=== PATIENT | female | born 1945 | race Caucasian/White ===

== ENCOUNTER 2023-08-14 11:42 | Emergency (ER) | payer MEDICARE, OTHER, SELFPAY ==
[2023-08-14 11:55] VITALS: BP 109/66; PULSE 70; RESP 18; TEMP 37.2; O2SAT 97
--- NOTE | 2023-08-14 12:25 | ED.FEMALEGU ---
HPI - Female Genitourinary General Chief complaint: Urogenital-Female Stated complaint: Cold symptoms Source: patient Mode of arrival: ambulatory Limitations: no limitations History of Present Illness HPI Narrative: 77-year-old female presents to [facility] with complaints of chills and urinary frequency since yesterday. Patient reports history of urinary tract infections. Patient denies dysuria, urgency, vaginal discharge, fever, nausea vomiting or diarrhea. Patient denies sick contacts. Patient denies recent travel. MD elicited complaint: other (Urinary frequency) Onset (ago): day(s) (1) Vaginal discharge: none Vaginal bleeding: none Urinary symptoms: Frequency Associated symptoms: chills Related Data Home Medications Medication Instructions Recorded Confirmed celecoxib 200 mg capsule mg 08/14/23 Allergies Allergy/AdvReac Type Severity Reaction Status Date / Time codeine AdvReac Nausea Verified 08/14/23 12:01 Review of Systems Constitutional: Constitutional: Reports chills and Denies fatigue ENT: Denies dizziness and Denies nasal congestion Respiratory: Respiratory: Denies cough, Denies dyspnea and Denies wheezing Gastrointestinal: Gastrointestinal: Denies diarrhea, Denies nausea and Denies vomiting Genitourinary: Genitourinary: Denies abnormal vaginal bleeding, Denies hematuria, Reports nocturia, Denies dysuria, Denies pelvic pain and Denies flank pain Integumentary/Breasts: Skin/Breast: Denies pruritus, Denies erythema and Denies rash Neurologic: Denies dizziness, Denies syncope and Denies headache(s) PMFSH Comments At time of signature, I agree with nursing past medical, surgical, social and family history. There is no relevant family history pertinent to the presenting complaint. Exam Const: General: healthy appearing and no acute distress Nutritional Appearance: well nourished Orientation/consciousness: patient oriented x3 Limitations: no limitations HENMT: Head: normal to inspection Eyes: Conjunctivae: conjunctivae normal Neck: Neck: normal visual inspection Resp: Effort & Inspection: normal respiratory effort and not labored Auscultation: clear to auscultation bilaterally, no crackles, no rales, no rhonchi and no wheezes Cardio: Rate: regular rate Rhythm: regular rhythm Heart sounds: no murmurs : General: Yes bladder normal to palpation and Yes CVA tenderness (Mild) bilateral Back/Spine/Pelvis: Back: CVA tenderness (Mild bilateral CVA tenderness noted upon palpation) Skin: General skin exam: normal color Rashes: no rashes Neuro: General: patient oriented x3 Speech: normal speech Gait exam (Neuro): Normal gait present Extrem: General: normal to inspection Psych: Appearance: grossly normal Affect: normal affect Attitude: cooperative Course Course Level of Care: Express Care Visit Vital Signs Vital signs: Vital Signs Temperature 37.2 C 08/14/23 11:55 Pulse Rate 70 08/14/23 11:55 Respiratory Rate 18 08/14/23 11:55 Blood Pressure 109/66 08/14/23 11:55 Pulse Oximetry 97 08/14/23 11:55 Oxygen Delivery Room Air 08/14/23 11:55 Temperature 37.2 C 08/14/23 11:55 Pulse Rate 70 08/14/23 11:55 Respiratory Rate 18 08/14/23 11:55 Blood Pressure 109/66 08/14/23 11:55 Pulse Oximetry 97 08/14/23 11:55 Oxygen Delivery Room Air 08/14/23 11:55 MDM - Female Genitourinary MDM Narrative Medical decision making narrative: Urinalysis results discussed with patient. Urine culture obtained and sent to lab. Patient agrees take antibiotic as prescribed. Will place patient on ciprofloxacin due to bilateral CVA tenderness. Patient understands importance of monitoring symptoms very closely and agrees to proceed to the emergency room if symptoms worsen Differential Diagnosis Differential diagnosis: Likely cervicitis, cystitis and other (Viral illness) Lab Data Labs: Urine Glucose Negative
== END 2023-08-14 12:38 | disposition home or self-care (01) ==
PROVIDERS: Emergency Provider Nurse Practitioner Family
DX: N30.00 Acute cystitis without hematuria (principal); B96.20 Unspecified Escherichia coli [E. coli] as the cause of diseases classified elsewhere
CPT/HCPCS: 81003; 87077; 87086; 87088; 87186; 99203; G0463

== ENCOUNTER 2024-09-12 11:27 | Emergency (ER) | payer MEDICARE, OTHER, SELFPAY ==
--- NOTE | ~2024-09-12 | XR_ITS ---
HISTORY: RT foot pain/swelling top of foot no injury 4x days COMPARISON: none TECHNIQUE: 3 views of the right foot were performed FINDINGS: No acute fracture or dislocation is appreciated. No significant degenerative disease is noted. The base of the fifth metatarsal is intact. No calcaneal spur is noted. Trace dorsal soft tissue swelling is present. IMPRESSION: Trace dorsal soft tissue swelling, without acute fracture. Reviewed, dictated and finalized at location A.
--- OUTSIDE RECORDS SUMMARY | 2024-09-12 11:31 | XMS_ITS | Encounter Summary ---
Author Organization [facility] Health Address [address] [place] [address] Care Team Providers Care Electrical Electronics Technician Name Role Phone Nikos Arango MD Unavailable [phone] Baudilio Shipley MD Primary Care Provider [phone] Encounter Details Date Type Department Care Team (Late st Contact Info) Description 03/18/2023 Lab Requisition [facility] - DermPath Lab [address] [facility] [place] [address] Irish Gray DO [address] [facility] [address] [place] [address] Social History Tobacco Use Types Packs/Day Years Used Date Smoking Tobacco: Never Smokeless Tobacco: Never Alcohol Use Standard Drinks/Week Comments Yes 8 (1 standard drink = 0.6 oz pur e alcohol) 8-10 glasses per week OASIS D0700: Social Isolation Answer Da te Recorded Frequency of experiencing loneliness or isolatio n Never 02/26/2023 OASIS A1250: Transportation Answer Date Recorded Lack of Transportation (Medical) No 02/26/2023 Lack of Transportation (Non-Medical) No 02/26/2023 Patient Unable or Declines to Respond No 02/26/2023 OASIS B1300: Health Literacy Answer Rosales e Recorded Frequency of needing help to read materials from doctor or pharmacy Never 02/26/2023 Overall Financial Resource Strain (CARDIA) Answe r Date Recorded How hard is it for you to pa y for the very basics like food, housing, medical care, and heating? Not hard at all 02/10/2023 PHQ-2 Answer Date Recorded Patient Health Questionnaire-2 Score 0 03/16/2023 [facility] - Occupational Stress Questionnaire Answer Date Recorded Do you feel stress - tense, restless, nervous, or anxious, or unable to sleep at night because your mind is troubled all the time - these days? Not at all 02/10/2023 Hunger Vital Sign Answer Date Recorded Within the past 12 months, y ou worried that your food would run out before you got the money to buy more. Never true 02/11/20 23 Within the past 12 months, t he food you bought just didn't last and you didn't have money to get more. Never true 02/10/2023 PRAPARE - Transportation Answer Date Re corded In the past 12 months, has l ack of transportation kept you from medical appointments or from getting medications? No 08/2022 In the past 12 months, has l ack of transportation kept you from meetings, work, or from getting things needed for daily living? No 02/10/2023 Housing Stability Vital Sign Answer Rosales e Recorded In the last 12 months, was t here a time when you were not able to pay the mortgage or rent on time? No 02/10/2023 In the last 12 months, how many places have you lived? 1 02/10/2023 In the last 12 months, was t here a time when you did not have a steady place to sleep or slept in a half-way (including now)? No 02/10/2023 Comments Unknown Sex and Gender Information Value Date Recorded Sex Assigned at Not on file Legal Sex Female 12:16 PM CDT Gender Identity Not on file Sexual Orientation Not on file COVID-19 Exposure Response Date Recorded In the last 10 days, have yo u been in contact with someone who was confirmed or suspected to have Coronavirus/COVID-19? No / Unsure 02/26/2023 8:51 AM LOSS PREVENTION ANALYST documented as of this encounter Functional Status * Is person deaf or have serious hearing difficulty? Answer Date of Assessment Author No 12/24/2016 12:28 PM Brandy Chirinos RN * Is person blind or have serious difficulty seeing? Answer Date of Assessment Author No 12/24/2016 12:28 PM Brandy Chirinos RN * Does person have serious difficulty walking/climbing stairs? Answer Date of Assessment Author No 12/24/2016 12:28 PM Brandy Chirinos RN * Does person have difficulty dressing/bathing? Answer Date of Assessment Author No 12/24/2016 12:28 PM Brandy Chirinos RN * Does person have difficulty doing errands alone? Answer Date of Assessment Author No 12/24/2016 12:28 PM Brandy Chirinos RN documented as of this encounter Mental Status * Does person have difficulty concentrating/remembering/making decisions? Answer Entry Date Author No 12/24/2016 12:28 PM Brandy Chirinos RN documented in this encounter Plan of Treatment Not on file documented as of this encounter Procedures Procedure Name Priority Date/Time Associated Diagnosis Comments DERMATOPATHOLOGY Routine 03/18/2023 9:29 AM LOSS PREVENTION ANALYST documented in this encounter Results * DERMATOPATHOLOGY (03/18/2023 9:29 AM LOSS PREVENTION ANALYST) Case Report Dermatopathology Report Case: [id number] Authorizing Provider: Irish Gray DO Collected: 03/18/2023 09:29 AM Ordering Location: [facility] DermPath Lab Received: 03/19/2023 07:17 AM Pathologist: Brook Langston MD Specimen: Skin, left posterior LE 11:32 AM LOSS PREVENTION ANALYST DERMATOPATHOLOGY LABORATORY Final Diagnosis Specimen A. 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 The specimen consists of a shave biopsy measuring 10x7x1 mm. Jar 0. 11:32 AM [facility] DERMATOPATHOLOGY LABORATORY Microscopic Description Specimen A. SKIN, left posterior LE: The epidermis shows parakeratosis, full thickness disorderly maturation of keratinocytes, mitoses at different levels, and dyskeratotic cells. 4 11:32 AM [facility] DERMATOPATHOLOGY LABORATORY Disclaimer An external and internal positive and negative controls are appropriate for the histochemical, immunohistochemical and immunofluorescence stain(s) in this case (if any), except where stated explicitly. The performance characteristics of the stain(s) cited in this report were developed and its performance characteristic determined by the Dermatopathology Laboratory at [facility], directed by Dr. Lucian Guthrie. These tests need not be, and therefore are not, approved by the [place] Food and Drug Administration. The tests are used for clinical purposes. Billing Codes Specimen Charges Stain Charges 02589 1 4 11:32 AM [facility] DERMATOPATHOLOGY LABORATORY Embedded Images 4 11:32 AM [facility] DERMATOPATHOLOGY LABORATORY Pathology/Cytolo gy TISSUE SPECIMEN FROM SKIN / Unknown 03/18/2023 9:29 AM LOSS PREVENTION ANALYST 03/19/2023 7:17 AM [facility] us Irish Gray DO LAB - PATHOLOGY/CYTOLOGY ORDERABLES Final Result DERMATOPATHOLOGY LABORATORY [facility] - Department of Dermatology [facility] Specialized Medicine [address] [place] [address], [address] [place], [place] [id number] [place] [address] documented in this encounter Visit Diagnoses Not on filedocumented in this encounter Care Teams Electrical Electronics Technician Relationship Specialty [place] [address] [place] [address] PCP - General Internal Medicine 11/24/21 [place] [address] [place] [address] Orthopedic Surgery 12/31/14 documented as of this encounter
--- OUTSIDE RECORDS SUMMARY | 2024-09-12 11:31 | XMS_ITS | Data Portability ---
Author Organization Amy. Reyes Mai n Office Address [address] [place] [id number] Care Team Providers Care Video News Editor Name Role Phone GERMAINE ROGEL [employer] Contract Analyst Assessment No assessment recorded. Plan of Treatment Reminders Order Date Submit Date Provider Last Modified By Organization Details Last Modified Time Details Appointments None recorded. Lab TSH, serum or plasma 2018 019 [facility], [address] [place], [address], 9 08:35:34 CBC w/ auto diff 2018 019 [facility], [address] [place], [address], 9 08:35:32 vitamin D, 25-hydroxy, total, serum 2018 019 [facility], [address] [place], [address], 9 08:35:34 C-reactive protein, quantitativ e, serum or plasma 2018 019 [facility], [address] [place], [address], 9 08:35:33 CMP, serum or plasma 2018 019 [facility], [address] [place], [address], 9 08:35:33 lipid panel, blood 2018 019 [facility], [address] [facility], [place], [address], 9 08:35:34 HbA1c (hemoglobin A1c), blood 2018 019 [facility], [address] [facility], [place], [address], 9 08:35:35 Referral None recorded. Procedures None recorded. Surgeries None recorded. Imaging electrocard iogram 2018 019 Main Office, [address] [place] [address], [address], [address], 9 13:27:03 audiogram 2018 019 [email or web address] Main Office, [address] [place] [address], [address], 9 13:27:03 electrocard iogram 2018 019 [place] Main Office, [address] [place] [address], [address], [address], 0 05:01:23 Medication Orders None recorded. Patient TargetsNo targets recorded. Patient Instructions Encounter Date Encounter Id Patient Instructions Last Modified By Organization Details Last Modified Time 11/10/2018 spirometry testing* rkundra Not available 11/10/2018 14:59:57 Patient reminded blood was drawn today. Encouraged to hydrate and be cautious as they may become dizzy or light headed. If issues or symptoms, return to clinic or contact nearest medical personnel. We look forward to seeing you to discuss the results of these labs. Be well and see you soon! Not available 11/10/2018 10:35:44 11/17/2018 barron anxiety inventory* rkundra Not available 11/17/2018 16:18:41 epworth sleepiness scale* rkundra Not available 11/17/2018 16:18:41 functional assessment screening* rkundra Not available 11/17/2018 16:18:41 spirometry testing* rkundra Not available 11/17/2018 16:18:41 In compliance with Medicare guidelines, we will be billing Medicare to inform them of your adherence to completing your necessary preventive care. Not available 11/17/2018 11:16:36 Reason for Referral None Reported. Results Created Date Observation Date Name Description Value Unit Range Abnormal Flag Note LastModifiedBy Organization Detail LastModifiedTime 11/18/1911/17/2018 audio gram Hearing Aids? No Not Available Main O ffice [address], [address], 11/17/2018 11:17:28 11/18/1911/17/2018 audio gram 500 Hz- Right- 20 dB normal Not Available [facility] [address], [address], 11/17/2018 11:17:28 11/18/1911/17/2018 audio gram 500 Hz- Left- 20 dB normal Not Available Main Office [address], [address], 11/17/2018 11:17:28 11/18/1911/17/2018 audio gram 1000 Hz- Right- 20 dB normal Not Available [facility] [address], [address], 11/17/2018 11:17:28 11/18/1911/17/2018 audio gram 1000 Hz- Left- 20 dB normal Not Available Main Office [address], [address], 11/17/2018 11:17:28 11/18/1911/17/2018 audio gram 2000 Hz- Right- 20 dB normal Not Available [facility] [address], [address], 11/17/2018 11:17:28 11/18/1911/17/2018 audio gram 2000 Hz- Left- 20 dB normal Not Available Main Office [address], [address], 11/17/2018 11:17:28 11/18/1911/17/2018 audio gram 4000 Hz- Right- 20 dB abnorm al Not Available Main Office [address], [address], 11/17/2018 11:17:28 11/18/1911/17/2018 audio gram 4000 Hz- Left- 20 dB normal Not Available Main Office [address], [address], 11/17/2018 11:17:28 11/18/1911/17/2018 elect rocar diogr am Rate & Rhythm Sinus Not Available Main O ffice [address], [address], 11/17/2018 11:17:24 11/18/1911/17/2018 elect rocar diogr am QRS 90 Not Available Main Offic e [address], [address], 11/17/2018 11:17:24 11/18/1911/17/2018 elect rocar diogr am PA Interval 173 Not Available Main O ffice [address], [address], 11/17/2018 11:17:24 11/18/1911/17/2018 elect rocar diogr am QRS Duration 81 Not Available Main Office [address], [address], 11/17/2018 11:17:24 11/18/1911/17/2018 elect rocar diogr am QT Interval 434 Not Available Main O ffice [address], [address], 11/17/2018 11:17:24 11/18/192019 dion metry testi ng* Spirometry abnorm al Not Available Main Office [address], [address], 11/17/2018 11:17:22 11/18/19 19 11/17/2018 funct ional asses sment scree jorge* Gender Female Not Available Main Offic e [address] [place] [address], [address], 11/17/2018 11:16:39 11/18/19 19 11/17/2018 funct ional asses sment scree jorge* Results Discus sed Not Available Main Office [address] [place] [address], [address], 11/17/2018 11:16:39 11/18/19 19 11/17/2018 epwor th sleep iness scale * Total Score 5 Not Available Main O ffice [address] [place] [address], [address], 11/17/2018 11:16:38 11/18/19 19 11/17/2018 epwor th sleep iness scale * Indication Normal Not Available Main Of fice [address] [place] [address], [place], [address], 11/17/2018 11:16:38 11/18/1911/17/2018 barron anxie ty inven tory* Total Score 0 Not Available Main O ffice [address] [place] [address], [address], 11/17/2018 11:16:38 11/18/1911/17/2018 barron anxie ty inven tory* Indication Normal Not Available Main Of fice [address] [place] [address], [address], 11/17/2018 11:16:38 11/11/19 19 11/10/2018 CBC w/ auto diff white blood cells 5.4 k/cu_ mm 3.6-10 .2 normal Not Available [facility] (Lab) [address], [place], [address], 11/11/2018 08:35:32 11/11/19 19 11/10/2018 CBC w/ auto diff red blood cells 4.4 m/cu_ mm 4.1-5. 3 normal Not Available [facility] (Lab) [address], [place], [address], 11/11/2018 08:35:32 11/11/19 19 11/10/2018 CBC w/ auto diff hemoglobin 14.0 gm/dL 11.9-1 5.8 normal Not Available [facility] (Lab) [address], [place], [address], 11/11/2018 08:35:32 11/11/1911/10/2018 CBC w/ auto diff hematocrit 44.0 perce nt 37.4-4 8.3 normal Not Available [facility] (Lab) [address], [place], [address], 11/11/2018 08:35:32 11/11/1911/10/2018 CBC w/ auto diff MCV 99 fL 82-99 normal Not Available [facility] (Lab) [address], [place], [address], 11/11/2018 08:35:32 11/11/1911/10/2018 CBC w/ auto diff MCH 32 pg 27-33 normal Not Available [facility] (Lab) [address], [place], [address], 11/11/2018 08:35:32 11/11/1911/10/2018 CBC w/ auto diff MCHC 32 perce nt 32-36 normal Not Available [facility] (Lab) [address] [place], [address], 11/11/2018 08:35:32 11/11/1911/10/2018 CBC w/ auto diff platelets 257 k/cu_ mm 150-45 0 normal Not Available [facility] (Lab) [address] [place], [address], 11/11/2018 08:35:32 11/11/19 19 11/10/2018 CBC w/ auto diff MPV 10.5 fL 9.8-12 .7 normal Not Available [facility] (Lab) [address] [place], [address], 11/11/2018 08:35:32 11/11/19 19 11/10/2018 CBC w/ auto diff RDW-CV 14 perce nt 11-15 normal Not Available [facility] (Lab) [address] [facility], [place], [address], 11/11/2018 08:35:32 11/11/19 19 11/10/2018 CBC w/ auto diff neutrophils 65 perce nt 37-72 normal Not Available [facility] (Lab) [address] [place], [address], 11/11/2018 08:35:32 11/11/19 19 11/10/2018 CBC w/ auto diff lymphocytes 22 perce nt 16-48 normal Not Available [facility] (Lab) [address] [place], [address], 11/11/2018 08:35:32 11/11/1911/10/2018 CBC w/ auto diff monocytes 11 perce nt 4-14 normal Not Available [facility] (Lab) [address] [place], [address], 11/11/2018 08:35:32 11/11/1911/10/2018 CBC w/ auto diff eosinophils 1 perce nt 0-9 normal Not Available [facility] (Lab) [address] [place], [address], 11/11/2018 08:35:32 11/11/19 19 11/10/2018 CBC w/ auto diff basophils 1 perce nt 0-2 normal Not Available [facility] (Lab) [address] [place], [address], 11/11/2018 08:35:32 11/11/1911/10/2018 CBC w/ auto diff nucleated RBC 0.00 /100_ WBC 0.00-0 .00 normal Not Available [facility] (Lab) [address], [place], [address], 11/11/2018 08:35:32 11/11/1911/10/2018 CBC w/ auto diff neutrophil count 3.6 k/cu_ mm 1.1-6. 0 normal Not Available [facility] (Lab) [address], [place], [address], 11/11/2018 08:35:32 11/11/1911/10/2018 CBC w/ auto diff lymphocyte count 1.2 k/cu_ mm 0.7-3. 4 normal Not Available [facility] (Lab) [address], [place], [address], 11/11/2018 08:35:32 11/11/1911/10/2018 CBC w/ auto diff monocyte count 0.6 k/cu_ mm 0.3-1. 0 normal Not Available [facility] (Lab) [address], [place], [address], 11/11/2018 08:35:32 11/11/1911/10/2018 CBC w/ auto diff eosinophil count 0.0 k/cu_ mm 0.0-0. 6 normal Not Available [facility] (Lab) [address] [place], [address], 11/11/2018 08:35:32 11/11/1911/10/2018 CBC w/ auto diff basophil count 0.1 k/cu_ mm 0.0-0. 1 normal Not Available [facility] (Lab) [address] [place], [address], 11/11/2018 08:35:32 11/11/1911/10/2018 CBC w/ auto diff nucleated RBC count 0.0 x10'3 /uL 0.0-0. 0 normal Not Available [facility] (Lab) [address] [facility], [place], [address], 11/11/2018 08:35:32 11/11/1911/10/2018 CBC w/ auto diff automated percent immature granulocytes 0 % Not Available [facility] (Lab) [address] [place], [address], 11/11/2018 08:35:32 11/11/1911/10/2018 CBC w/ auto diff automated absolute immature granulocytes 0.0 x10'3 /uL Not Available [facility] (Lab) [address] [facility], [place], [address], 11/11/2018 08:35:32 11/11/1911/10/2018 C-derick ctive prote in, quant itati ve, serum or plasm a C-reactive protein 1.39 mg/L 0.00-1 0.00 normal Not Available [facility] (Lab) [address] [facility], [place], [address], 11/11/2018 08:35:33 11/11/1911/10/2018 CMP, serum or plasm a glucose 95 mg/dL 70-99 normal Not Available [facility] (Lab) [address] [facility], [place], [address], 11/11/2018 08:35:33 11/11/1911/10/2018 CMP, serum or plasm a urea nitrogen 23 mg/dL 8-23 normal Not Available [facility] (Lab) [address] [place], [address], 11/11/2018 08:35:33 11/11/1911/10/2018 CMP, serum or plasm a creatinine 0.8 mg/dL 0.5-1. 2 normal Not Available [facility] (Lab) [address] [place], [address], 11/11/2018 08:35:33 11/11/19 19 11/10/2018 CMP, serum or plasm a GFR() 91 mL/mi n/1.7 3_m2 60-300 normal Not Available [facility] (Lab) [address] [place], [address], 11/11/2018 08:35:33 11/11/19 19 11/10/2018 CMP, serum or plasm a GFR(others) 75 mL/mi n/1.7 3_m2 60-300 normal Not Available [facility] (Lab) [address] [place], [address], 11/11/2018 08:35:33 11/11/19 19 11/10/2018 CMP, serum or plasm a sodium 141 mEq/L 136-14 5 normal Not Available [facility] (Lab) [address] [place], [address], 11/11/2018 08:35:33 11/11/19 19 11/10/2018 CMP, serum or plasm a potassium 4.5 mEq/L 3.5-5. 3 normal Not Available [facility] (Lab) [address] [place], [address], 11/11/2018 08:35:33 11/11/1911/10/2018 CMP, serum or plasm a chloride 103 mEq/L 98-107 normal Not Available [facility] (Lab) [address] [place], [address], 11/11/2018 08:35:33 11/11/1911/10/2018 CMP, serum or plasm a CO2 25 mEq/L 23-31 normal Not Available [facility] (Lab) [address] [place], [address], 11/11/2018 08:35:33 11/11/1911/10/2018 CMP, serum or plasm a anion gap 13 mmole s/L 8-16 normal Not Available [facility] (Lab) [address] [place], [address], 11/11/2018 08:35:33 11/11/1911/10/2018 CMP, serum or plasm a calcium 9.6 mg/dL 8.8-10 .5 normal Not Available [facility] (Lab) [address] [place], [address], 11/11/2018 08:35:33 11/11/1911/10/2018 CMP, serum or plasm a total protein 6.9 gm/dL 6.0-8. 3 normal Not Available [facility] (Lab) [address] [place], [address], 11/11/2018 08:35:33 11/11/1911/10/2018 CMP, serum or plasm a albumin 4.5 gm/dL 3.5-5. 0 normal Not Available [facility] (Lab) [address] [place], [address], 11/11/2018 08:35:33 11/11/1911/10/2018 CMP, serum or plasm a AST (SGOT) 24 IU/L 11-32 normal Not Available [facility] (Lab) [address] [place], [address], 11/11/2018 08:35:33 11/11/1911/10/2018 CMP, serum or plasm a ALT (SGPT) 17 IU/L 9-43 normal Not Available [facility] (Lab) [address] [place], [address], 11/11/2018 08:35:33 11/11/1911/10/2018 CMP, serum or plasm a alkaline phos 65 IU/L 35-129 normal Not Available [facility] (Lab) [address] [place], [address], 11/11/2018 08:35:33 11/11/1911/10/2018 CMP, serum or plasm a total bilirubin 0.9 mg/dL 0.0-1. 0 normal Not Available [facility] (Lab) [address] [place], [address], 11/11/2018 08:35:33 11/11/1911/10/2018 lipid panel , blood total cholesterol 207 mg/dL 0-199 high Not Available [facility] (Lab) [address] [place], [address], 11/11/2018 08:35:34 11/11/1911/10/2018 lipid panel , blood triglyceride s 48 mg/dL 0-149 normal Not Available [facility] (Lab) [address] [place], [address], 11/11/2018 08:35:34 11/11/1911/10/2018 lipid panel , blood HDL cholesterol 94 mg/dL 50-240 normal Not Available [facility] (Lab) [address] [place], [address], 11/11/2018 08:35:34 11/11/1911/10/2018 lipid panel , blood LDL cholesterol 103 mg/dL 0-99 high Not Available [facility] (Lab) [address] [facility], [place], [address], 11/11/2018 08:35:34 11/11/1911/10/2018 lipid panel , blood chol/HDL ratio 2.2 Not Available [facility] (Lab) [address] [place], [address], 11/11/2018 08:35:34 11/11/1911/10/2018 lipid panel , blood non-HDL cholesterol 113 mg/dL 0-129 normal For Ages >=20 years (mg/d L) ..... ..... ..... ..Hola al... .Elev ated. ...Mello rderl ine.. ....H igh.. ...Ve ry High Chol* ..... ...<2 00... ..... ..... ..... ..... ..... ..... ..... .200- 239.. ..>=2 40 Trig. ..... ..... <1 50... ..... ..... ..... ...15 0-199 ..... .200- 499.. ..>=5 00 LDL-C ..... ..<10 0...1 00-12 9.... .130- 159.. ....1 60-18 9.... >=190 NonHD L-C.< 130.. .130- 159.. ...16 0-189 ..... .190- 219.. ..>=2 20 Tahir castellano TA, et al. Natio nal Lipid Assoc iatio n recom menda tions for patie nt-ce ntere d manag ement of dysli pidem ia: part 1-ful l repor t. J Clin Lipid ol 2015; 129-1 69. *Thir d repor t of the Natio nal Gladis stero l Educa tion Progr am (NCEP ) Exper t Panel on Detec tion, Educa tion, and Treat ment of High Blood Gladis stero l in Adult s (Adul t Treat ment panel III): final repor t. Circu ashish n 2001; 106:3 143. Not Available [facility] (Lab) [address] [place], [address], 11/11/2018 08:35:34 11/11/19 19 11/10/2018 TSH, serum or plasm a TSH 1.67 mciu/ mL 0.30-5 .00 normal Not Available [facility] (Lab) [address] [place], [address], 11/11/2018 08:35:34 11/11/1911/10/2018 vitam in D, 25-hy droxy , total , serum vitamin D, 25-hydroxy 45.4 NG/mL 30.0-8 0.0 normal This assay was perfo rmed using [employer] ratio n reage nts and test kits. Value s obtai vik with other assay metho ds or kits canno t be used inter hughes eably . NOTE: Defic iency : <20 ng/mL Insuf ficie ncy: 20-29 ng/mL Optim um Level : 30-80 ng/mL Possi ble Toxic ity: >80 ng/mL Most patie nts with toxic ity have level s >150 ng/mL Not Available [facility] (Lab) [address] [facility], [place], [address], 11/11/2018 08:35:34 11/11/19 19 11/10/2018 HbA1c (hemo globi n A1c), blood hemoglobin A1C 5.2 perce nt 0.0-5. 6 normal <5.7% Debbie l 5.7 - 6.4% Incre ased risk for diabe elis >=6.5 % Diagn ostic of diabe elis <7.0% Goal of thera py >8.0% Actio n sugge sted Not Available [facility] (Lab) [address] [facility], [place], [address], 11/11/2018 08:35:35 11/11/19 19 elect tre nickerson am No observ ation record ed. rkundra Not Available 2018 15:52:56 11/11/19 19 dion metry testi ng* No observ ation record ed. rkundra Main Office [address] [address], [place], [address], 11/17/2018 15:52:56 Result Notes None recorded. Problems Name Problem SNOMED Code Status Onset Date Resolution Date Notes Provider Name and Address Organization Details Recorded Time History of malignan t neoplasm of breast 069915822 Completed 199211/17/2018 Removal Reason: right intraduct al s/p bilateral mastectom y LUCRECIA Solorio Amy. 9 15:01:39 Osteoart hritis 975738422 Active 1999 LUCRECIA Solorio Amy. 9 15:51:18 Insomnia 174223000 Active 1999 LUCRECIA Solorio Amy. 9 16:01:25 Basal cell carcinom a of skin 980479783 Active LUCRECIA Solorio Amy. 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 9 16:14:38 Urge incontin ence of urine 79774489 Active 2018 in physical therapy LUCRECIA Solorio Amy. 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 Procedures Surgical History Date Name Laterality Status Provider Name and Address Organization Details Recorded Time 11/18/19 19 [facility] completed Amy. Selene 019 11:16:37 09/15/19 17 Dxa bone density katrin vrt fx completed Amy. Ravi 05/04/2019 08:52:35 05/07/19 12 Diagnostic colonoscopy Amy. Theo 05/04/2019 08:51:52 Bilateral Mastectomy completed Amy. Selene 08/03/2018 12:35:18 total replacement of hip completed Amy. Selene 08/03/2018 12:35:48 plastic repair procedure completed Amy. Selene 08/03/2018 12:36:08 stripping of vein completed Amy. Wing 08/03/2018 12:36:23 Tonsillectomy completed Amy. Selene 08/03/2018 12:36:41 Imaging Results None recorded. Procedure Notes None recorded. Medical Equipment None Reported. Allergies Allergen ID Allergen Name Allergen Category Reaction Reaction Severity Criticality Documentation Date Start Date Code Code System Note Provider Name and Address Organization Details Recorded Time 2271 codeine medicatio n Not available Not available Not available 07/27/2018 2670 RxNorm LUCRECIA Gan Amy. 9 14:31:15 Medications Name Sig Start Date Stop Date Status Note LastModified by Organization Details LastModified Time celecoxib 200 mg capsule TAKE 1 CAPSULE BY MOUTH TWICE A DAY active Not Available Not Available No t Available doxycycline hyclate 100 mg capsule 03/27 completed Not Available Not Available Not Available trazodone 50 mg tablet active Not Available Not Available Not Available azithromyci n 250 mg tablet TAKE 2 TABLETS (500 MG) BY ORAL ROUTE ONCE DAILY FOR 1 DAY THEN 1 TABLET (250 MG) BY ORAL ROUTE ONCE DAILY FOR 4 DAYS 04/17 completed Not Available Not Available Not Available hydrocodone 5 mg-acetamin ophen 325 mg tablet 08/03 completed Not Available Not Available Not Available fluorouraci l 5 % topical cream APPLY TWICE DAILY TO ARMS, LEGS AND CHEST DIRECTED FOR 4 WEEKS active Not Available Not Available No t Available valacyclovi r 500 mg tablet active Not Available Not Available Not Available triamcinolo ne acetonide 0.1 % topical cream active Not Available Not Available Not Available amoxicillin 500 mg tablet TAKE 4 TABLETS BY MOUTH 1 HOUR BEFORE DENTAL TREATMENT active Not Available Not Available No t Available prednisolon e acetate 1 % eye drops,suspe nsion PLEASE SEE ATTACHED FOR DETAILED DIRECTION S active Not Available Not Available No t Available tacrolimus 0.1 % topical ointment APPLY TO AFFECTED AREAS ON FACE TWO TIMES DAILY NEEDED . 30 DAYS SUPPLY. active Not Available Not Available No t Available oseltamivir 75 mg capsule 08/03 completed Not Available Not Available Not Available polymyxin B sulfate 10,000 unit-trimet hoprim 1 mg/mL eye drops PLEASE SEE ATTACHED FOR DETAILED DIRECTION S active Not Available Not Available No t Available diclofenac sodium 75 mg tablet,gabby yed release 03/27 completed Not Available Not Available Not Available hydrocortis one 2.5 % topical cream APPLY TO SPOT TWICE A DAY 03/27 completed Not Available Not Available Not Available mupirocin 2 % topical ointment APPLY TO SPOTS TWICE A DAY active Not Available Not Available No t Available estradiol 0.01% (0.1 mg/gram) vaginal cream USE FINGERTIP OF CREAM IN VAGINA TWICE WEEKLY active Not Available Not Available No t Available celecoxib 100 mg capsule 03/27 completed Not Available Not Available Not Available doxycycline hyclate 100 mg tablet TAKE 1 TABLET BY MOUTH TWICE A DAY FOR 10 DAYS active Not Available Not Available No t Available amoxicillin 875 mg-potassiu m clavulanate 125 mg tablet Take 1 tablet twice a day by oral route. 04/17 completed Not Available Not Available Not Available escitalopra m 5 mg tablet Take 1 tablet every day by oral route. 2019 active Not Available Not Available Not Avai lable nitrofurant oin monohydrate /macrocryst als 100 mg capsule TAKE 1 CAPSULE (100 MG TOTAL) BY MOUTH 2 (TWO) TIMES A DAY FOR 5 DAYS AFTER URINE SAMPLE GIVEN active Not Available Not Available No t Available Boostrix Tdap 2.5 Lf unit-8 mcg-5 Lf/0.5 mL intramuscul ar syringe active Not Available Not Available N ot Available estradiol-n orethindron e acet 0.5 mg-0.1 mg tablet active Not Available Not Available Not Available Soolantra 1 % topical cream APPLY TO FACE TWICE A DAY active Not Available Not Available No t Available Vitals Date Recorded Body height Body mass index (BMI) Body weight Body temperature Systolic And Diastolic Provider Name and Address Organization Details Last Updated DateTime 05/04/2019 175.26 cm 21.4 kg/m2 08801.8 9 g 97.6 [degF] 136/74 mm[Hg] Amy. Selene 0 12:22:32 Date Recorded Body height Body mass index (BMI) Body weight Provider Name and Address Organization Details Last Updated DateTime 11/10/2018 175.26 cm 21 kg/m2 48211.12 g Amy. Selene 11/10/2018 10:41:36 Date Recorded Body height Body mass index (BMI) Body weight Heart rate Oxygen saturation Oxygen saturation in Arterial blood by Pulse oximetry Provider Name and Address Organization Details Last Updated DateTime 9 175.26 cm 21 kg/m2 59787.1 2 g 58 /min 97 % 97 % Amy. Selene 9 11:16:56 Date Recorded Respiratory rate Systolic And Diastolic Provider Name and Address Organization Details Last Updated DateTime 11/17/2018 12 /min 118/68 mm[Hg] Cal Rodrigues 11/17/2018 15:00:11 Social History Question Answer Notes LastModified by Organizat ion Details LastModified Time Tobacco Smoking Status Never Smoker Not Available [employer] 01/09/2020 03:34:55 What Was The Date Of Your Most Recent Tobacco Screening? 07/27/2018 [id number] Information not available 01/09/2020 How Much Tobacco Do You Smoke? No [id number] Information not available 01/09/2020 How Many Years Have You Smoked Tobacco? 0 [id number] Information not available 01/09/2020 Sex: Unknown Functional Status Question Answer Note LastModified by Organizat ion Details LastModified Time What is your level of alcohol consumption? Moderate wine 4-5 times a week [id number] Information not available 01/09/2020 Do you or have you ever used smokeless tobacco? Never used smokeless tobacco [id number] Information not available 01/09/2020 Do you or have you ever used e-cigarettes or vape? Never used electronic cigarettes [id number] Information not available 01/09/2020 Mental Status None recorded. Family History Relationship Description Onset Age of this Age Resolved Age Notes LastModified by Organization Details LastModified Time Father Hypertensive disorder [email or web address] Not available 2018 14:32:12 Father 79 Not available 07/27/2018 14:33:06 Mother Degenerative disorder of macula Not available 2018 14:32:39 Mother Atrial fibrillation [email or web address] Not available 14:32:46 Mother 94 [email or web address] Not available 07/27/2018 14:33:06 Medical History No medical history recorded. Gynecological HistoryNo gynecological history recorded. Obstetrics History GPAL:G 0 P 0 0 0 0 Immunizations Vaccine Type Date Status Note Provider Nam e and Address Organization Details Recorded Time Pneumococcal conjugate PCV 13 8 LUCRECIA Hodgson Amy. 11/17/2018 15:57:15 zoster, unspecified formulation 9 LUCRECIA Hodgson Amy. 11/17/2018 15:57:49 pneumococcal polysaccharide PPV23 3 LUCRECIA Hodgson Amy. 11/17/2018 15:58:34 Influenza, split virus, quadrivalent, preservative 9 LUCRECIA Kim Amy. 12/20/2018 10:03:33 Tdap 9 LUCRECIA Kim Amy. 12/20/2018 10:03:46 Past Encounters Encounter ID Performer Location Encounter Start Date Encounter Closed Date Diagnosis/Indication Diagnosis SNOMED-CT Code Diagnosis ICD10 Code Diagnosis Note [id number] Micky Olivares MD Main Office [address] [place] [address] [id number] 11/10/2018 10:34:15 11/10/2018 11:51:43 Adult health examination 637888223 Z00.00 Micky Olivares MD Main Office [address] [place] [address] [phone] 11/17/2018 11:16:18 11/21/2018 13:27:03 Adult health examination 801088614 Z00.00 Testing of the kidney function, liver enzymes, plasma electrolyt es, thyroid function, complete blood cell analysis, vitamin D level and C-reactive protein inflammati on markers were all normal.We reviewed the lipid panel with high protective levels of the HDL 'good cholestero l' and LDL within the goal range.No diabetes was detected.T entatively , A colonoscop y is recommende d every ten years I still need to obtain the original report (my environmental assistant will contact you to get those details).T he remainder of the pneumonia vaccines & shingles vaccines are up to date. You plan a tetanus and influenza vaccine at your local pharmacy. 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 9 hold celecoxib to exclude allergyhas derm eval plannedadd 1 gram vitamin C daily Health Concerns Section Related Observation LastModified by Organization Detai ls LastModified Time None Recorded Concern Status LastModified by Organization Details LastModified Time None Recorded Advance Directives Directive None Recorded Payers Insurance Date Sequence Insurance Name Policy Number Policy Sheppard Covered Member ID Sheppard Member ID Guarantor Name 07/25/2020 1 MEDICARE B-[place] oDra Caballero [id number] Dora Caballero 07/25/2020 2 [employer]NA & AET[employer]/US [employer] PLAN F Dora Caballero [id number] Dora Caballero Notes Date Note Type Note Provider Name and Address Organization Details Recorded Time 9 text/html Patient presents today for the prewellness labs and procedures LUCRECIA Gan Amy. 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 Physical Activity:exercises on a regular basis; good physical condition; discussed exercise habits Depression Risk:never feels sad, empty, or tearful; no loss of interest in activities; no significant changes in weight; no agitation; no loss of energy; no feelings of worthlessness or guilt; no thoughts of suicide; no history of depression; no history of mood disorders; trouble with awakening at 3-4 am and can't return to sleep until 6 Orientation:no disorientation to time; no disorientation to date; no disorientation to place Concentration and Memory:no decreased concentrating ability; no memory lapses or loss; does not forget words Speech/Motor difficulties:no speech difficulties; no difficulty expressing formulated concepts; no difficulty with fine manipulative tasks; no difficulty writing/copying; no slowed reaction time; does not knock things over when trying to pick them up Hearing:no loss of hearing Vision:no vision problems; on eye vitamins Activities of Daily Living:able to bathe with limited or no assistance; able to contol urination and bowels; able to dress with limited or no assistance; able to feed self with limited or no assistance; able to get out of chair or bed with limited or no assistance; able to groom with limited or no assistance; able to toilet with limited or no assistance Instrumental Activities of Daily Living:able to do house work with limited or no assistance; able to grocery shop with limited or no assistance; able to manage medications with limited or no assistance; able to manage money with limited or no assistance; able to prepare meals with limited or no assistance; able to use the phone with limited or no assistance Falls Risk Assessment:no frequent falls while walking; no fall in the past year; no fall since last visit; no dizziness/vertigo Home Safety:no unsafe dwayne hazzards; no unsafe gas appliances; use of seatbelts; no vision or hearing loss while driving; good lighting in the home Misael Caballero is here for the [facility] Wellness Program and Subsequent Annual Wellness Exam. During this visit we will review and discuss their Health Risk Assessment and review the various tests and procedures performed as part of the [facility] Annual Wellness Exam. The patient has no current acute medical complaints, nor any recent hospitalizations. Discussion Points for Review during Visit: -Review current medical conditions and specialists' consultations in detail. -Labs and testing review in great detail. -Review risks associated w/pain, nutrition, hydration, sleep, stress, activity and sexual health. -Review risks of alcohol, caffeine, and tobacco. -Preventative services and offer available/appropriate services. -Review personal, home and driving safety. LUCRECIA Solorio Amy. 11/17/2018 16:28:01 0 text/html improved anxiety insomnia with 5 mg escitalopram without complaintper our discussion prior to appt except persistent hives w/o change in diet or skin caredifficult family situationshas joint replacement concerned about medical travel with infectionmarriedallergy codeineno angioedema/dyspnea or other rashdenies thoughts of harm or depressionappetite good LUCRECIA Solorio Amy. 05/04/2019 13:08:29 OBGyn Episode No OBEpisode recorded.
--- OUTSIDE RECORDS SUMMARY | 2024-09-12 11:31 | XMS_ITS | Encounter Summary ---
Author Organization [facility] Health Address [address] [place] [address] Care Team Providers Care Supervisor Agricultural Education Name Role Phone Nikos Arango MD Unavailable [phone] Baudilio Shipley MD Primary Care Provider [phone] Encounter Details Date Type Department Care Team (Late st Contact Info) Description 05/11/2023 Lab Requisition [facility] - DermPath Lab [address] [facility], [place] [address] Irish Gray DO [address] [facility] [address] [place] [address] Social History Tobacco Use Types Packs/Day Years [...] Recorded Patient Health Questionnaire-2 Score 0 03/16/2023 [facility] of Occupat ional Health - Occupational Stress [...] place to sleep or slept in a chcf (including now)? No 02/10/2023 Comments Unknown Sex and Gender Information Value Date Recorded Sex Assigned at Not on file Legal Sex Female 12:16 PM CDT Gender Identity Not on file Sexual Orientation Not on file documented as of this encounter Functional Status [...] Priority Date/Time Associated Diagnosis Comments DERMATOPATHOLOGY Routine 05/11/2023 8:30 AM ORGAN PIPE FINISHER documented in this encounter Results * DERMATOPATHOLOGY (05/11/2023 8:30 AM ORGAN PIPE FINISHER) Case Report Dermatopathology Report Case: [id number] Authorizing Provider: Irish Gray DO Collected: 05/11/2023 08:30 AM Ordering Location: [facility] - Received: 05/11/2023 12:35 PM DermPath Lab Pathologist: Brook Langston MD Specimen: Skin, left posterior LE 2:17 PM ORGAN PIPE FINISHER DERMATOPATHOLOGY LABORATORY Final Diagnosis Specimen A. SKIN, left posterior LE: SQUAMOUS CELL CARCINOMA, WELL DIFFERENTIATED (C44.729) NOT PRESENT AT MARGIN DERMAL SCAR (L90.5) 4 2:17 PM ORGAN PIPE FINISHER DERMATOPATHOLOGY LABORATORY at 1417 ORGAN PIPE FINISHER Clinical History Bx Proven SCCIS. Check Margins 2:17 PM ORGAN PIPE FINISHER DERMATOPATHOLOGY LABORATORY Gross Description Specimen A: Received is one formalin filled container labeled with the patient's name and designated left posterior LE. The specimen consists of a non-oriented ellipse of skin measuring [id number] mm. Also, there a lesion measuring 14x6 mm. The margin is inked green. The 12 o'clock and 6 o'clock tips are submitted in cassette 1. The remainder of the ellipse is serially sectioned and submitted in cassette 2 - 4. Jar 0. 2:17 PM [facility] DERMATOPATHOLOGY LABORATORY Microscopic Description Specimen A. SKIN, left posterior LE: Arising in the epidermis and extending into the dermis there are irregularly shaped aggregates of keratinocytes showing evidence of premature cornification. This lesion is not present at the margin of the specimen. There are fibroblasts and collagen bundles oriented parallel to the skin surface with elongated blood vessels, some of which are oriented perpendicular to the skin surface. 4 2:17 PM [facility] DERMATOPATHOLOGY LABORATORY Disclaimer An external and internal positive and negative controls are appropriate for the histochemical, immunohistochemical and immunofluorescence stain(s) in this case (if any), except where stated explicitly. The performance characteristics of the stain(s) cited in this report were developed and its performance characteristic determined by the Dermatopathology Laboratory at [facility], directed by Dr. Lucian Guthrie. These tests need not be, and therefore are not, approved by the [place] Food and Drug Administration. The tests are used for clinical purposes. Billing Codes Specimen Charges Stain Charges 83417 1 2:17 PM [facility] DERMATOPATHOLOGY LABORATORY Embedded Images 2:17 PM [facility] DERMATOPATHOLOGY LABORATORY Pathology/Cytolo gy TISSUE SPECIMEN FROM SKIN / Unknown 05/11/2023 8:30 AM ORGAN PIPE FINISHER 05/11/2023 12:35 PM [facility] us Irish Gray DO LAB - PATHOLOGY/CYTOLOGY ORDERABLES Final Result DERMATOPATHOLOGY LABORATORY [facility] - Department of Dermatology [address] [place] [address], [facility] [phone] documented in this encounter Visit Diagnoses Not on filedocumented in this encounter Care Teams Supervisor Agricultural Education Relationship Specialty [place] [address] [facility] [address] [place] [address] PCP - General Internal Medicine 11/24/21 [place] [address] LUCREC[place] SALDAÑA [address] Orthopedic Surgery 12/31/14 documented as of this encounter
--- OUTSIDE RECORDS SUMMARY | 2024-09-12 11:32 | XMS_ITS | Encounter Summary ---
Author Organization [facility] Health Address [address] [facility] [place] [address] Care Team Providers Care Transverse Abdominal Muscle Nurse Name Role Phone Nikos Arango MD Unavailable Sharon Zimmer MD Primary Care Provider [phone] Baudilio Shipley MD Primary Care Provider [phone] Encounter Details Date Type Department Care Team (Late [facility]) Description 05/19/2018 Lab Requisition [facility] Care DermPath Lab [address] [facility] [place] [address] Montserrat Stoll MD [address] [facility] [address] [place] [address] Social History Tobacco Use Types Packs/Day Years Used Date Smoking Tobacco: Never Smokeless Tobacco: Never Alcohol Use Standard Drinks/Week Comments Yes 8 (1 standard drink = 0.6 oz pur e alcohol) 8-10 glasses per week Comments Unknown Sex and Gender Information Value Date Recorded Sex Assigned at Not on file Legal Sex Female 12:16 PM CDT Gender Identity Not on file Sexual Orientation Not on file documented as of this encounter Functional Status * Is person deaf or have serious hearing difficulty? Answer Date of Assessment Author No 12/24/2016 12:28 PM CDT Brandy Adam RN * Is person blind or have serious difficulty seeing? Answer Date of Assessment Author No 12/24/2016 12:28 PM CDT Brandy Adam RN * Does person have serious difficulty walking/climbing stairs? Answer Date of Assessment Author No 12/24/2016 12:28 PM CDT Brandy Adam RN * Does person have difficulty dressing/bathing? Answer Date of Assessment Author No 12/24/2016 12:28 PM CDT Brandy Adam RN * Does person have difficulty doing errands alone? Answer Date of Assessment Author No 12/24/2016 12:28 PM CDT Brandy Adam RN documented as of this encounter Mental Status * Does person have difficulty concentrating/remembering/making decisions? Answer Entry Date Author No 12/24/2016 12:28 PM CDT Brandy Adam RN documented in this encounter Plan of Treatment Not on file documented as of this encounter Procedures Procedure Name Priority Date/Time Associated Diagnosis Comments DERMATOPATHOLOGY Routine 05/18/2018 12:0 0 AM CDT documented in this encounter Results * DERMATOPATHOLOGY (05/18/2018 12:00 AM CDT) Case Report Dermatopathology Report Case: [id number] Authorizing Provider: Montserrat Stoll MD Collected: 05/18/2018 12:00 AM Pathologist: Randall Guthrie MD Received: 05/19/2018 06:19 AM Specimen: Skin, right mid thigh 9 12:54 PM CDT DERMATOPATHOLOGY LABORATORY Final Diagnosis Specimen A. SKIN, right mid thigh: DERMAL SCAR RESIDUAL SQUAMOUS CELL CARCINOMA NOT IDENTIFIED (L90.5) ACTINIC KERATOSIS, INCIDENTAL; PRESENT AT MARGIN (L57.0) 9 12:54 PM CDT DERMATOPATHOLOGY LABORATORY at 1254 CDT Clinical History Bx proven, SCCIS. Previous Bx: [id number]. 9 12:54 PM CDT DERMATOPATHOLOGY LABORATORY Gross Description Specimen A: Received is one formalin filled container labeled with the patient's name and designated right mid thigh. The specimen consists of a non-oriented ellipse of skin measuring 51l43f7rn. The epidermal surface consists of a centrally located 48m00ua previous biopsy site. The margin is inked green. The 12 o'clock and 6 o'clock tips are submitted in cassette 1. The remainder of the ellipse is serially sectioned and submitted in cassettes 2-5. Jar 0. 9 12:54 PM T DERMATOPATHOLOGY LABORATORY Microscopic Description Specimen A. SKIN, right mid thigh: There are fibroblasts and collagen bundles oriented parallel to the skin surface. There are elongated blood vessels, some of which are oriented perpendicular to the skin surface. No residual squamous cell carcinoma is identified. Away from the scar there is focal parakeratosis. The lower half of the epidermis shows disorderly maturation of keratinocytes with nuclear pleomorphism. This lesion is present at one lateral margin of the specimen in block 4. 9 12:54 PM T DERMATOPATHOLOGY LABORATORY Disclaimer An external and internal positive and negative controls are appropriate for the histochemical, immunohistochemical and immunofluorescence stain(s) in this case (if any), except where stated explicitly. The performance characteristics of the stain(s) cited in this report were developed and its performance characteristic determined by the Dermatopathology Laboratory at [facility], directed by Dr. Lucian Guthrie. These tests need not be, and therefore are not, approved by the [place] Food and Drug Administration. The tests are used for clinical purposes. Billing Codes Specimen Charges Stain Charges 67137 1 9 12:54 PM T DERMATOPATHOLOGY LABORATORY Embedded Images 9 12:54 PM T DERMATOPATHOLOGY LABORATORY Pathology/Cytolog y TISSUE SPECIMEN FROM SKIN / Unknown 05/18/2018 05/19/2018 6:19 AM CDT Montserrat Stoll MD LAB - PATHOLOGY/CYTOLOGY OR DERABLES Final Result DERMATOPATHOLOGY LABORATORY [facility] - Department of Dermatology [address] [place] [address], 5[address] Floor Lab [address] [phone] documented in this encounter Visit Diagnoses Not on filedocumented in this encounter Care Teams Transverse Abdominal Muscle Nurse Relationship Specialty Start Date End Date Sharon Zimmer MD [address] [facility] [address] [place] [address] PCP - General Gastroenterology 08/24/16 11/23/21 [place] [address] [facility] [address] [place] [address] PCP - General Internal Medicine 11/24/21 [place] [address] [facility] [address] [place] [address] Orthopedic Surgery 12/31/14 documented as of this encounter
--- OUTSIDE RECORDS SUMMARY | 2024-09-12 11:32 | XMS_ITS | Clinical Summary ---
Author Organization [facility] Address [address] [place] [address] Care Team Providers Care Bottoming Room Supervisor Name Role Phone Jose Garsia Unavailable Unavailable Jayshree Nichols MD Unavailable [phone] Toshia Real DPT Unavailable [phone] Shelby Hatch DPT Unavailab le Baudilio Shipley MD Primary Care Provider [phone] Allergies Active Allergy Reactions Criticality Noted Date Comments Codeine Nausea & Vomiting Medium 11/26/2016 Latex Rash Medium 12/31/2021 Reports some slight irritation Propoxyphene-Acetami nophen Nausea And Vomiting 06/10/2020 Medications fluorouracil (EFUDEX) 5 % cream Apply 1 application topically as needed 7 Active multivitamin capsule Take 1 capsule by mouth daily Active carboxymethylcel lulose (Restore Tears) 0.5 % ophthalmic solution Take 1 capsule by mouth daily Active celecoxib (CeleBREX) 200 mg capsule Take 1 capsule (200 mg total) by mouth daily 1 Active cholecalciferol (VITAMIN D-3) 2000 unit tablet Take 1 tablet (2,000 Units total) by mouth daily Active TURMERIC ORAL Take 2,000 mg by mouth daily Active D-MANNOSE ORAL Take by mouth A ctive latanoprost, PF, (Iyuzeh) 0.005 % dropperette Administer 1 drop into affected eye(s) nightly 1 drop in each eye nightly Active Active Problems Problem Noted Date Diagnosed Date Pyelonephritis 08/14/2023 Lip lesion 01/05/2023 Assessment & Plan (01/06/2023 8:18 PM CDT): Her lower lip is healing well and I do not find any significant problems. I deferred any further follow-up to her cutter in. I did reassured that I do not find any evidence of cervical lymph node involvement. At this point there is no need for intervention but if she should notice any development of lumps in the upper neck she should call me. She understands. Hoarseness 01/05/2023 Assessment & Plan (01/06/2023 8:19 PM CDT): Her vocal cords look generally pretty normal and she has normal vocal cord mobility. I reassured of this. I did not feel there is any need for further intervention. It is possible it prior intubations could have cause some micro damage. I suggested a follow-up if her symptoms worsen. Cataract of left eye 12/18/2021 Cataract of right eye 12/18/2021 Glaucoma of left eye 12/18/2021 Glaucoma of right eye 12/18/2021 Other secondary cataract, unspecified eye 2021 Pelvic floor dysfunction in female 01/06/2021 Assessment & Plan (01/06/2021 5:30 PM CDT): - She has restarted PFPT exercises at home but only doing Kegels, we discussed stopping Kegels for the time being until after she is re-evaluated by PFPT. She is amenable to this. PFPT order placed. - we discussed resuming vaginal icing, she reports she has icing tubes at home Vaginal atrophy 01/06/2021 Assessment & Plan (01/06/2021 5:31 PM CDT): - Continue VET 2x weekly. This is prescribed by her Director Translational Dr. Pozo. Presence of intraocular lens 12/10/2020 Preglaucoma, unspecified, unspecified eye 2020 Derangement of meniscus 08/10/2019 Squamous cell carcinoma 08/10/2019 Primary osteoarthritis of right hip 04/20/2018 Overview (04/20/2018): Added automatically from request for surgery [id number] History of right knee joint replacement 08/24/19 18 Myofascial pain 02/17/2017 History of recurrent urinary tract infection Basal cell carcinoma of skin 11/28/2015 Overview (08/10/2019): left cheek r lower leg Status post total hip replacement, left 11/28/19 16 Other female genital prolapse 10/18/2015 Personal history of breast cancer 10/18/2015 Overview (06/14/2018): Right, bilat mastectomy, prophylactic on left Urge incontinence of urine 10/18/2015 Anxiety disorder 07/09/2015 Wears eyeglasses 07/09/2015 Personal history of primary malignant neoplasm o f breast 03/21/2012 Overview (04/19/2018): History of breast cancer Overview: Overview: History of breast cancer Hypermetropia 04/28/2011 Presbyopia 04/28/2011 Regular astigmatism 04/28/2011 Osteoarthritis 03/08/1999 Overview (08/10/2019): Osteoarthritis Insomnia 03/08/1999 Resolved Problems Problem Noted Date Diagnosed Date Resolved Date Nausea and vomiting 08/17/2023 02/08/20 24 Sepsis 08/17/2023 02/08/2024 Frequent UTI 12/30/2020 08/14/2023 Assessment & Plan (01/06/2021 5:30 PM CDT): - She has a pre-exisiting standing urine culture order to use when she has symptoms. She was instructed to call our office either after she has given a specimen or with signs or symptoms of an UTI. A urine specimen will be sent to assess for an UTI. Empiric treatment will be started if indicated based on symptoms. - We discussed UTI prevention strategies including use of vaginal estrogen, Vitamin C supplementation, D-mannose, methenamine, voiding after intercourse, scheduled voiding every 2-3 hours, and antibiotic suppression. She will plan to use the following UTI prevention strategies: use of vaginal estrogen, Vitamin C supplementation, D- mannose, voiding after intercourse and scheduled voiding every 2-3 hours. Handout on D- mannose provided. - given urinary symptoms still present particularly nocturia, will send cathed urine for UA and culture - will plan for cystoscopy with Dr. Salcedo, order entered Knee pain 08/10/2019 08/14/2023 Screening for colon cancer 12/26/2018 1 04/10/2023 Overview (12/26/2018): Added automatically from request for surgery [id number] Trochanteric bursitis of right hip 06/14/2017 08/14/2023 Hip pain 02/17/2017 08/14/2023 Pain in female pelvis 02/17/20172023 Urinary urgency 02/17/2017 08/14/2023 Increased frequency of urination 02/17/2017 08/14/2023 Encounters Date Type Department Care Team Description 08/14/2024 Orders Only [facility] [id number] [place] [address] [place] [phone] Baudilio Shipley MD 08/10/2024 Orders Only [facility] [id number] [place] [phone] Baudilio Shipley MD B12 deficiency (Primary Dx) 08/08/2024 9:00 AM CDT Office Visit [facility] [id number] [place] [phone] Baudilio Shipley MD Unspecified general medical examination (Primary Dx); Vitamin D deficiency from Last 3 Months Immunizations Immunization Administration Dates Next Due COVID-19 MRNA (MODERNA) .25 ML (25 MCG) VACCINE (6 MOS- 11 YRS) 02/01/2024 Flucelvax Influenza Quad 01/18/2024 Influenza, Quadrivalent, Hig h Dose, Preservative Free, Intrr 11/21/2019 Influenza, Quadrivalent, Spl it, Intramuscular 12/18/2018,12/18/2018,11/28/2015,11/27 Influenza, Quadrivalent, Spl it, Preservative Free, Intramuscular 12/16/2018,12/16/2018 Influenza, Trivalent, High D ose, Split, Preservative Free, Intramuscular 11/12/2017,11/11/2017,11/08/2016 Influenza, Trivalent, IM (MDV) 12/05/2012,2012 Influenza, Trivalent, Preser vative Free, Intramuscular 11/17/2014,11/17/2014 Influenza, Unspecified 11/20/2019,2018(Deferred: Other - patient had a flu shot on 11/12/17),11/12/2017,11/12/2017,11/13/19 18,11/11/2017,11/08/2016 Moderna SARS-CoV-2 Monovalen t Vaccination (12+ YRS) 12/31/2020,04/26/2020,03/28/2020 Pneumococcal Conjugate PCV 13 03/08/2017 ,03/08/2017,11/08/2016,11/08 Pneumococcal Polysaccharide PPV23 2017,02/15/2018,2012,10/10,03/08/2011,03/08/2011 Tdap 12/18/2018, 9,12/18/2018,12/16,11/08/2016,11/08/2016 ZOSTER LIVE 03/08/2012,03/08/2012 ZOSTER Recombinant 01/09/2018, 8,01/08/2018,01/08,08/26/2017,08/26/2017 Zoster, unspecified 03/08/2018,03/08/2018 Surgical History Surgery Date Site/Laterality Comments HIP SURGERY Hip Surgery - left hip replacement 2014 (Added by TW Conv) KNEE SURGERY Right Knee Surgery - 01/2017 knee replacement right (Added by TW Conv) FLUORO GUIDED INJECTION HIP RIGHT 09/02/2017 Right FLUORO GUIDED INJECTION HIP RIGHT 11/11/2017 Right VAGINAL DELIVERY 1974, 1977, 1982 : TOTAL HIP ARTHROPLASTY Left osteoarthritis: L hip replacement MASTECTOMY 03/08/1992 - 03/07/1993 Breast Surgery Mastectomy - bilat double mastectomy 1992 (Added by TW Conv) TUBAL LIGATION 03/08/1983 - 03/07/1984 VARICOSE VEIN SURGERY 03/08/1983 - 03/07/1984 JOINT REPLACEMENT Medical History Medical History Date Comments H/O tubal ligation 1982 Bilateral tub al ligation Ductal carcinoma (HCC) 1992 ductal ca rcinoma in situ, breast cancer 1975 ; Outco me: Unknown sex Osteoarthritis osteoarthritis H/O varicose vein stripping 1983 PONV (postoperative nausea and vomiting) Menopause ovarian failure Squamous cell cancer of lip jamey om lip Family History Medical History Relation Name Comments Hypertension Father Breast cancer Father's Sister 2 Cancer, b reast; Enuresis Mother Urinary inconti nence - (Added by TW Conv) Hypertension Mother Breast cancer Mother's Sister 2 Cancer, b reast; Colon cancer Neg Hx Deep vein thrombosis Neg Hx Ovarian cancer Neg Hx Uterine cancer Neg Hx Relation Name Status Comments Father Father's Sister 1 Alive Father's Sister 2 Mother Mother's Sister 1 Alive Mother's Sister 2 Social History Tobacco Use Types Packs/Day Years Used Date Smoking Tobacco: Never Smokeless Tobacco: Never Tobacco Cessation:Counseling Given: Not Answered Alcohol Use Standard Drinks/Week Comments Yes 14 (1 standard drink = 0.6 oz pu re alcohol) 2 [facility] Utilities Answer Date Recorded In the past 12 months has e Mobile Captain, gas, oil, or water Liquidations [employer] threatened to shut off services in your home? No 08/16/2023 Humiliation, Afraid, Rape, and Kick questionnair e Answer Date Recorded Fear of Current or Ex-Partner No Emotionally Abused No 12/26/2018 Physically Abused No 12/26/2018 Sexually Abused No 12/26/2018 Social Connection and Isolat ion Panel [NHANES] Answer Date Recorded In a typical week, how many times do you talk on the phone with family, friends, or neighbors? More than three times a week 08/16/2023 How often do you get togethe r with friends or relatives? More than three times a week 08/16/2023 How often do you attend chur or pentecostal services? More than 4 times per year 08/16/2023 Do you belong to any clubs o r organizations such as yazdanism groups, unions, fraternal or athletic groups, or school groups? Yes 08/16/2023 How often do you attend meet ings of the clubs or organizations you belong to? More than 4 times per year 08/16/2023 Are you , , di vorced, , never , or living with a partner? Living with partner 08/16/2023 AUDIT-C Answer Date Recorded Frequency of Alcohol Consumption 4 or more times a week 05/23/2018 Average Number of Drinks 1 or 2 019 Frequency of Binge Drinking Never 05/06 Overall Financial Resource Strain (CARDIA) Answe r Date Recorded How hard is it for you to pa y for the very basics like food, housing, medical care, and heating? Not hard at all 08/16/2023 Exercise Vital Sign Answer Date Recorde d Days of Exercise per Week 6 days 2018 Minutes of Exercise per Session 30 min 12/26/2018 Hunger Vital Sign Answer Date Recorded Within the past 12 months, y ou worried that your food would run out before you got the money to buy more. Never true 08/16/19 24 Within the past 12 months, t he food you bought just didn't last and you didn't have money to get more. Never true 08/16/2023 PRAPARE - Transportation Answer Date Re corded In the past 12 months, has l ack of transportation kept you from medical appointments or from getting medications? No 08/06 In the past 12 months, has l ack of transportation kept you from meetings, work, or from getting things needed for daily living? No 08/16/2023 Housing Stability Vital Sign Answer Rosales e Recorded In the last 12 months, was t here a time when you were not able to pay the mortgage or rent on time? No 08/16/2023 In the past 12 months, how m any times have you moved where you were living? 0 08/16/2023 At any time in the past 12 m [facility], were you homeless or living in a usp (including now)? No 08/16/2023 Personal Safety Answer Date Recorded Have you ever been in or are you currently in a harmful physical or emotional relationship or is someone making you feel afraid or unsafe? Denies 08/14/2023 Comments No Sex and Gender Information Value Date Recorded Sex Assigned at Not on file Legal Sex Female 1:40 AM CAMPUS AIDE Gender Identity Not on file Sexual Orientation Not on file Obstetrics History Para Term AB IAB SAB Ectopic Multiple Livin g Live Births 3 3 3 Date Outcome GA Total Labor Labor/2nd/3rd Weight Sex Type Anes PTL Qi A1 A5 Name Clin F Vag-S pont Living F Vag-S pont Living M Vag-S pont Living Last Filed Vital Signs Vital Sign Reading Time Taken Comments Blood Pressure 118/60 08/08/2024 9:28 AM CDT Pulse 71 08/17/2023 3:55 PM CDT Temperature 36.8 C (98.2 F) 08/17/2023 3:55 PM CDT Respiratory Rate 18 08/17/2023 3:55 PM CDT Oxygen Saturation 96% 08/17/2023 3:55 PM CDT Inhaled Oxygen Concentration - - Weight 65.8 kg (145 lb) 08/08/2024 9:28 AM CDT Height 172.7 cm (5' 8) 08/15/2023 12:59 AM CDT Body Mass Index 22.05 08/15/2023 12:59 AM CDT Plan of Treatment Health Maintenance Due Date Last Done Comments Depression Screening 02/06/2025 02/07/2024 Osteoporosis Screening-Bone Density Scan 02/07/2025 01/13/2022, 01/08/2022, 09/14/2016, Additional history exists Postponed from 01/14/2024 (Patient declined, but will receive in the future) Well Visit 65+ 02/07/2025 02/08/2024, 02/06, 02/10/2021, Additional history exists Covid-19 Vaccine ( season) 2025 02/01/2024, 12/31/2020, 04/26/2020, Additional history exists Postponed from 03/28/2024 (Patient declined, but will receive in the future) Fall Risk Assessment 08/08/2025 08/08/2024, 08/17/19 24 DTaP/Tdap/Td Vaccine (7 - Td or Tdap) 12/18/2028 12/18/2018, 12/18/2018, 12/18/2018, Additional history exists Colon Cancer Screening-CT Colonography Discontinued 03/08/2016 Colon Cancer Screening-Colonoscopy Discontinued 03/08/2016 Colon Cancer Screening-DNA Stool Discontinued 03/08/2016 Colon Cancer Screening-FIT Discontinued 03/08/2016 Colon Cancer Screening-FOBT Discontinued 03/08/2016 Colon Cancer Screening-Sigmoidoscopy Discontinued 03/08/2016 Colorectal Cancer Screening Discontinued Pneumococcal vaccine 65+ Completed 018, 02/15/2018, 03/08/2017, Additional history exists Zoster Vaccine Completed 03/08/2018, 03/2018, 01/09/2018, Additional history exists Hepatitis C Screening Completed 08/15/2023 Influenza Vaccine Completed 01/18/2024, , 11/20/2019, Additional history exists Hepatitis B Screening Discontinued Medical Devices Implanted Type Area Strapping Machine Operator Device Identifier Shelf Expiration Date Model / Serial / Lot [employer] [id number] Procotyl Prime 50mm Shell Acetabular Sterile - S0 - [id number] Implanted:Qty: 1 on 06/21/2018 by Abel Lund MD at [facility] Right: Hip [employer] 01/11/2026 [id number] / 0 / [id number] [employer] [id number] Procotyl Prime 36mm Liner Acetabular Sterile Latex Free - S0 - [id number] Implanted:Qty: 1 on 06/21/2018 by Abel Lund MD at [facility] Right: Hip [employer] 10/20/2025 [id number] / 0 / [id number] [employer] [id number] Dynasty Lineage 6.5mm 30mm Acetabular Screw Bone Biofoam - S0 - [id number] Implanted:Qty: 1 on 06/21/2018 by Abel Lund MD at [facility] Right: Hip [employer] 08/17/2025 [id number] / 0 / [id number] [employer] [id number] Dynasty Lineage 6.5mm 35mm Acetabular Screw Bone Biofoam - S0 - [id number] Implanted:Qty: 1 on 06/21/2018 by Abel Lund MD at [facility] Right: Hip [employer] 08/23/2025 [id number] / 0 / [id number] [employer] [id number] Profemur Tl Classic Long Varus Neck Hip 8d 6 Stem Femoral Sterile - S0 - [id number] Implanted:Qty: 1 on 06/21/2018 by Abel Lund MD at [facility] Right: Hip [employer] 01/05/2023 [id number] / 0 / [id number] [employer] [id number] 36mm -3.5mm 14 Short Neck Taper Head Femoral Biolox Delta - S0 - [id number] Implanted:Qty: 1 on 06/21/2018 by Abel Lund MD at [facility] Right: Hip [employer] 03/15/2026 [id number] / 0 / [id number] Procedures Procedure Name Priority Date/Time Associated Diagnosis Comments VITAMIN B12 Routine 08/14/2024 9:31 AM CDT VITAMIN D 25 HYDROXY Routine 08/08/2024 9:30 AM CDT Unspecified general medical examination Vitamin D deficiency THYROID FUNCTION CASCADE Routine 08/08/2024 9:30 AM CDT Unspecified general medical examination Vitamin D deficiency LIPID PANEL Routine 08/08/2024 9:30 AM CDT Unspecified general medical examination Vitamin D deficiency COMPREHENSIVE METABOLIC PANEL Routine 08/08/2024 9:30 AM CDT Unspecified general medical examination Vitamin D deficiency CBC WITH AUTO DIFFERENTIAL Routine 08/08/2024 9:30 AM CDT Unspecified general medical examination Vitamin D deficiency HEPATITIS PANEL, ACUTE Routine 08/15/2023 5:34 AM CDT DEXA AXIAL SKELETON BONE DENSITY 1 OR MORE SITES Schedule Routine, Read Routine (OP Routine) 01/13/2022 3:30 PM CAMPUS AIDE 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 HM COLONOSCOPY Routine 03/08/2016 from Last 3 Months or Most Recently Relevant to Health Maintenance Results * Vitamin B12 (08/14/2024 9:31 AM CDT) Pathologist [facility] Vitamin B12 530 200 - 1,100 pg/mL [facility] 08/14/2024 9:31 AM CDT 08/14/2024 9:31 AM CDT Baudilio Shipley MD LAB BLOOD ORDERABLES Final R esult Performing Organization Address [facility] Co de Phone Number [facility] [address] [place] [address] * Thyroid Function [place] (08/08/2024 9:30 AM CDT) [facility] TSH 2.23 0.40 - 4.50 mIU/L [facility] Blood 08/08/2024 9:30 AM CDT 08/09/2024 10:36 AM CDT Narrative [facility] - 08/09/2024 12:00 PM CDT FASTING: UNKNOWN Baudilio Shipley MD LAB BLOOD ORDERABLES Final R esult Performing Organization Address [facility] de Phone Number [facility] [address] [place] [address] * (ABNORMAL) CBC with auto differential (08/08/2024 9:30 AM CDT) [facility] WBC 4.5 3.8 - 10.8 Thousand/u L [facility] RBC, POC 4.36 3.80 - 5.10 Million/uL [facility] Hgb 13.9 11.7 - 15.5 g/dL [facility] Hct 44.4 35.0 - 45.0 % [facility] MCV 101.8(H) 80.0 - 100.0 fL [facility] MCH 31.9 27.0 - 33.0 pg [facility] MCHC 31.3(L) 32.0 - 36.0 g/dL [facility] Comment: For adults, a slight decrease in the calculated MCHC value (in the range of 30 to 32 g/dL) is most likely not clinically significant; however, it should be interpreted with caution in correlation with other red cell parameters and the patient's clinical condition. Rdw 12.7 11.0 - 15.0 % [facility] Platelets 261 140 - 400 Thousand/u L [facility] MPV 10.5 7.5 - 12.5 fL [facility] Neutrophils, abs 2,430 1,500 - 7,800 cells/uL [facility] Lymphocytes, abs 1,409 850 - 3,900 cells/uL [facility] Monocyte abs 513 200 - 950 cells/uL [facility] Eosinophils, abs 99 15 - 500 cells/uL [facility] Basophils, abs 50 0 - 200 cells/uL [facility] Neutrophils 54 % [facility] Lymphocyte pct 31.3 % [facility] Monocytes 11.4 % [facility] Eosinophils 2.2 % [facility] Basophils 1.1 % [facility] Blood 08/08/2024 9:30 AM CDT 08/09/2024 10:36 AM CDT Narrative [facility] - 08/09/2024 12:00 PM CDT FASTING: UNKNOWN Baudilio Shipley MD LAB BLOOD ORDERABLES Final R esult [facility] [address] [place] [address] * Vitamin D 25 hydroxy (08/08/2024 9:30 AM CDT) Pathologist [facility] Vitamin D 25-OH 46 30 - 100 ng/mL [facility] Comment: Vitamin D Status 25-OH Vitamin D: Deficiency: <20 ng/mL Insufficiency: 20 - 29 ng/mL Optimal: > or = 30 ng/mL For 25-OH Vitamin D testing on patients on D2-supplementation and patients for whom quantitation of D2 and D3 fractions is required, the QuestAssureD(TM) 25-OH VIT D, (D2,D3), LC/MS/MS is recommended: order code 37446 (patients >2yrs). See Note 1 Note 1 For additional information, please refer to http://[employer]wa/faq/FOR916 (This link is being provided for informational/ educational purposes only.) Blood 08/08/2024 9:30 AM CDT 08/09/2024 10:36 AM CDT Narrative [facility] - 08/09/2024 12:00 PM CDT FASTING: UNKNOWN us Baudilio Shipley MD LAB BLOOD ORDERABLES Final R esult [facility] [address] [facility] [place] [phone] * (ABNORMAL) Lipid panel (08/08/2024 9:30 AM CDT) Cholesterol 220(H) <200 mg/dL [facility] HDL 85 > OR = 50 mg/dL [facility] Triglycerides 60 <150 mg/dL [facility] LDL 120(H) mg/dL (calc) [facility] Comment: Reference range: <100 Desirable range <100 mg/dL for primary prevention; <70 mg/dL for patients with CHD or diabetic patients with > or = 2 CHD risk factors. LDL-C is now calculated using the Tim-Gallito calculation, which is a validated novel method providing better accuracy than the Friedewald equation in the estimation of LDL-C. Tim SEPULVEDA et al. ROSELYN. 2013;310(19): 9548-8224 (http://education.Vibes.[employer]/faq/MAQ453) Chol/HDL ratio 2.6 <5.0 (calc) [facility] Non-HDL, (LDL+VLDL) 135(H) <130 mg/dL (calc) [facility] Comment: For patients with diabetes plus 1 major ASCVD risk factor, treating to a non-HDL-C goal of <100 mg/dL (LDL-C of <70 mg/dL) is considered a therapeutic option. Blood 08/08/2024 9:30 AM CDT 08/09/2024 10:36 AM CDT Narrative [facility] - 08/09/2024 12:00 PM CDT FASTING: UNKNOWN Baudilio Shipley MD LAB BLOOD ORDERABLES Final R esult [facility] [address] [place] [phone] * Comprehensive metabolic panel (08/08/2024 9:30 AM CDT) Pathologist [facility] Glucose 92 65 - 99 mg/dL [facility] Comment: Fasting reference interval BUN 22 7 - 25 mg/dL [facility] Creatinine 0.64 0.60 - 1.00 mg/dL [facility] eGFR 92 > OR = 60 mL/min/1.7 3m2 [facility] BUN/creat ratio SEE NOTE: 6 - 22 (calc) [facility] Comment: Not Reported: BUN and Creatinine are within reference range. Sodium 142 135 - 146 mmol/L [facility] Potassium, pl 4.9 3.5 - 5.3 mmol/L [facility] Chloride 105 98 - 110 mmol/L [facility] CO2 30 20 - 32 mmol/L [facility] Calcium 9.7 8.6 - 10.4 mg/dL [facility] Protein, sr 6.6 6.1 - 8.1 g/dL [facility] Albumin 4.5 3.6 - 5.1 g/dL [facility] GLOBULIN 2.1 1.9 - 3.7 g/dL (calc) [facility] Alb/glob ratio 2.1 1.0 - 2.5 (calc) [facility] Bilirubin, total 1.0 0.2 - 1.2 mg/dL [facility] Alk phos 65 37 - 153 U/L [facility] AST 26 10 - 35 U/L [facility] ALT (SGPT) 19 6 - 29 U/L [facility] Blood 08/08/2024 9:30 AM CDT 08/09/2024 10:36 AM CDT Narrative [facility] - 08/09/2024 12:00 PM CDT FASTING: UNKNOWN us Baudilio Shipley MD LAB BLOOD ORDERABLES Final R esult [facility] [address] [place] [phone] * Hepatitis panel, acute Blood (08/15/2023 5:34 AM CDT) Hep A IgM Nonreactive Nonreactive Comment: Interpretive Data: If Hep A IgM Ab is reported as Equivocal, a new sample should be drawn in two weeks for testing. Current interpretive data was last revised on 19. Hep B core IgM Nonreactive Nonreactive [facility] Comment: Interpretive Data If HepB Core IgM Ab is reported as Equivocal, a new sample should be drawn in two weeks for testing. Current interpretive data was last revised on 19. Hep C Ab Nonreactive Nonreactive [facility] Comment: Antibodies to HCV not detected. Does NOT exclude the possibility of recent exposure to HCV. Current interpretive data was last revised on 21 Interpretive Data Nonreactive: Antibodies to HCV not detected. Does NOT exclude the possibility of recent exposure to HCV. Equivocal: Equivocal for HCV antibodies. Supplemental molecular testing will be automatically performed to determine infection status in accordance with current CDC screening recommendations. Reactive: Positive for HCV antibodies. This may represent current or past HCV infection. Supplemental molecular testing will be automatically performed to determine current infection status in accordance with current CDC screening recommendations. Interpretive data was last revised on 2019. HepBsAg Nonreactive Nonreactive [facility] Blood 08/15/2023 5:34 AM CDT 08/15/2023 9:56 AM CDT us Sanchez Vuong MD LAB MICROBIOLOGY - GE NERAL ORDERABLES Final Result [facility] [address] [facility] Department [place] [address] * Dexa Axial Skeleton Bone Density 1 or 2 Site (01/13/2022 3:30 PM CAMPUS AIDE) Anatomical Region Laterality Modality Body N/A Mammography 01/13/2022 6:07 PM CAMPUS AIDE Addenda Addendum by Deonna Newberry MD on 02/03/2022 2:38 PM CAMPUS AIDE ADDENDUM: This addendum report supersedes the original report dated 01/13/2022 Additional history obtained: Osteoporosis. END OF ADDENDUM REPORT THIS IS AN ELECTRONICALLY VERIFIED FINAL REPORT 02/03/2022 2:38 PM Addendum Electronically signed by Deonna Newberry M.D. TW: TW Report ID: [id number] Reading Location: [id number] [place] [address] 01/13/2022 6:08 PM CAMPUS AIDE EXAM DESCRIPTION: DEXA AXIAL SKELETON BONE DENSITY 1 OR MORE SITES REASON FOR STUDY: 76 y/o year old F with given history of screening. Strapping Machine Operator/Model: Mobiscope A (S/N [id number]) CLINICAL INFORMATION: Current height: 68.5 inches Maximum height: 69 inches Weight: 147 pounds Risk factors: None COMPARISON: None available. Dissimilar scan types or analysis methods precludes assessment for calculating a significant change. FINDINGS: AP LUMBAR SPINE L1-L4: Total BMD is 0.978 g/cm2 T-score is -0.6 Left forearm BMD in the radius 33% is 0.682 g/cm2 T-score is -0.2 Left forearm evaluated due to patient having bilateral hip replacements. FRAX: FRAX not reported due to T-scores of hip, femoral neck and/or spine being at or above -1.0 (Normal). IMPRESSION: Normal REFERENCE: Bone mineral density: Normal (T-score above or = -1.0) Low bone mass (T-score between -1.0 and -2.5) replaces the previously used term osteopenia Osteoporosis (T-score = or below -2.5) Medical evaluation for secondary causes of low bone mineral density may be appropriate. FRAX is a World Health Organization validated fracture risk assessment tool that calculates a person's 10 year probability of a major osteoporosis related fracture and hip fracture. According to the National Osteoporosis Foundation guidelines, postmenopausal women and men age 50 or older with low bone mass and a 10 year probability of a major osteoporosis related fracture = or greater than 20% or a 10 year probability of a hip fracture = or greater than 3% should be considered for treatment. For further information, including treatment recommendations, please refer to the 2013 ISCD Official Positions (http://www.iscd.org) and the NOF's Clinician's Guide to Prevention and Treatment of Osteoporosis (http://www.nof.org/professionals/clinical-guidelines) THIS IS AN ELECTRONICALLY VERIFIED FINAL REPORT 01/13/2022 6:08 PM - Electronically signed by Deonna Newberry M.D. TW: TW Report ID: [id number] Reading Location: [id number] Procedure Note Deonna Newberry MD - 01/13/2022 EXAM DESCRIPTION: DEXA AXIAL SKELETON BONE DENSITY 1 OR MORE SITES REASON FOR STUDY: 76 y/o year old F with given history ofscreening. Strapping Machine Operator/Model: HoloCarefx A (S/N [id number]) CLINICAL INFORMATION: Current height: 68.5 inches Maximum height: 69 inches Weight: 147 pounds Risk factors: None COMPARISON: None available. Dissimilar scan types or analysis methods precludes assessment for calculating a significant change. FINDINGS: AP LUMBAR SPINE L1-L4: Total BMD is 0.978 g/cm2 T-score is -0.6 Left forearm BMD in the radius 33% is 0.682 g/cm2 T-score is -0.2 Left forearm evaluated due to patient having bilateral hip replacements. FRAX: FRAX not reported due to T-scores of hip, femoral neck and/or spine beingat or above -1.0 (Normal). IMPRESSION: Normal REFERENCE: Bone mineral density: Normal (T-score above or = -1.0) Low bone mass (T-score between -1.0 and -2.5) replaces thepreviously used term osteopenia Osteoporosis (T-score = or below -2.5) Medical evaluation for secondary causes of low bone mineral density may be appropriate. FRAX is a World Health Organization validated fracture risk assessmenttool that calculates a person's 10 year probability of a major osteoporosisrelated fracture and hip fracture. According to the National OsteoporosisFoundation guidelines, postmenopausal women and men age 50 or older with low bonemass and a 10 year probability of a major osteoporosis related fracture = or greater than 20% or a 10 year probability of a hip fracture = or greaterthan 3% should be considered for treatment. For further information, including treatment recommendations, please referto the 2013 ISCD Official Positions (http://www.iscd.org) and the NOF's Clinician's Guide to Prevention and Treatment of Osteoporosis (http://www.nof.org/professionals/clinical-guidelines) THIS IS AN ELECTRONICALLY VERIFIED FINAL REPORT 01/13/2022 6:08 PM - Electronically signed by Deonna Newberry M.D. TW: TW Report ID: [id number] Reading Location: [place] [address] Baudilio Shipley MD IMG DXA PROCEDURES Edited Re sult - Final * COLONOSCOPY (03/08/2016) Colonoscopy Normal Historical Provider HEALTH MAINTENANCE Final Result from Last 3 Months or Most Recently Relevant to Health Maintenance Insurance MEDICARE [employer] SENIOR SUPPLEMENT [employer] [place] MEDICARE [employer] [place] MEDICARE [place] MEDICARE [facility] [place] [id number] Advance Directives For more information, please contact: [phone] * Full Code (Latest Code Status on File) Date Activated Date Inactivated Comments 08/14/2023 11:28 PM 08/17/2023 9:28 PM * Full Code Date Activated Date Inactivated Comments 06/21/2018 2:02 PM 06/21/2018 11:18 PM Care Teams Bottoming Room Supervisor Relationship Specialty Start Date End Date Baudilio Shipley MD [address] [address] PCP - General Internal Medicine 01/13/21 Jose Garsia 08/23/17 Jayshree Nichols MD [address] [place] [address] Surgeon Orthopedic Surgery 08/24/17 Toshia Real, LORETOT [address] [place] [address] Physical Therapist Physical Therapy 08/31/17 Shelby Hatch, LORETOT [address] [facility] [place] [address] Physical Therapist Physical Therapy 11/01/18
--- OUTSIDE RECORDS SUMMARY | 2024-09-12 11:32 | XMS_ITS | Encounter Summary ---
Author Organization [facility] Health Address [address] [facility] [place] [address] Care Team Providers Care Internal Medicine Veterinary Technician Name Role Phone Nikos Arango MD Unavailable Sharon Zimmer MD Primary Care Provider [phone] Baudilio Shipley MD Primary Care Provider [phone] Encounter Details Date Type Department Care Team (Late [facility]) Description 08/19/2018 Lab Requisition [facility] Care DermPath Lab [address] [place] [address] Montserrat Stoll MD [address] [facility] [address] [place] [address] Social History Tobacco Use Types Packs/Day Years [...] Entry Date Author No 12/24/2016 12:28 PM JODEET Brandy Adam RN documented in this encounter Plan of Treatment Not on file documented as of this encounter Procedures Procedure Name Priority Date/Time Associated Diagnosis Comments DERMATOPATHOLOGY Routine 08/18/2018 12:0 0 AM CDT documented in this encounter Results * DERMATOPATHOLOGY (08/18/2018 12:00 AM CDT) Case Report Dermatopathology Report Case: [id number] Authorizing Provider: Montserrat Stoll MD Collected: 08/18/2018 12:00 AM Pathologist: Brook Langston MD Received: 08/19/2018 07:27 AM Specimen: Skin, left lateral kelley 9 1:03 PM CDT DERMATOPATHOLOGY LABORATORY Final Diagnosis Specimen A. SKIN, left lateral kelley: HYPERPLASTIC (HYPERTROPHIC) ACTINIC KERATOSIS (L57.0) PRESENT AT MARGIN 9 1:03 PM CDT DERMATOPATHOLOGY LABORATORY at 1303 CDT Clinical History SCC. Irritated. Check margins. 9 1:03 PM CDT DERMATOPATHOLOGY LABORATORY Gross Description Specimen A: Received is one formalin filled container labeled with the patient's name and designated left lateral kelley. The specimen consists of a shave measuring [id number]. The margin is inked green. Jar 0. 1:03 PM CDT DERMATOPATHOLOGY LABORATORY Microscopic Description Specimen A. SKIN, left lateral kelley: There is hyperkeratosis alternating with parakeratosis. There is epidermal hyperplasia with disorderly maturation of keratinocytes with nuclear pleomorphism confined to the lower half of the epidermis. This lesion is present at the margin of the specimen. 1:03 PM CDT DERMATOPATHOLOGY LABORATORY Disclaimer An external and internal positive and negative controls are appropriate for the histochemical, immunohistochemical and immunofluorescence stain(s) in this case (if any), except where stated explicitly. The performance characteristics of the stain(s) cited in this report were developed and its performance characteristic determined by the Dermatopathology Laboratory at [facility], directed by Dr. Lucian Guthrie. These tests need not be, and therefore are not, approved by the [place] Food and Drug Administration. The tests are used for clinical purposes. Billing Codes Specimen Charges Stain Charges 04078 1 9 1:03 PM CDT DERMATOPATHOLOGY LABORATORY Embedded Images 1:03 PM CDT DERMATOPATHOLOGY LABORATORY Pathology/Cytolog y TISSUE SPECIMEN FROM SKIN / Unknown 08/18/2018 08/19/2018 7:27 AM CDT Montserrat Stoll MD LAB - PATHOLOGY/CYTOLOGY OR DERABLES Final Result DERMATOPATHOLOGY LABORATORY [facility] - Department of Dermatology [address]th [address] Lab [address] [place], [place] [address] [phone] documented in this encounter Visit Diagnoses Not on filedocumented in this encounter Care Teams Internal Medicine Veterinary Technician Relationship Specialty Start Date End Date Sharon Zimmer MD [address] [facility] [place] [address] PCP - General Gastroenterology 08/24/16 11/23/21 [place] [address] [place] [address] PCP - General Internal Medicine 11/24/21 [place] [address] [place] [address] Orthopedic Surgery 12/31/14 documented as of this encounter
--- OUTSIDE RECORDS SUMMARY | 2024-09-12 11:32 | XMS_ITS | Encounter Summary ---
Author Organization [facility] Health Address [address] [place] [address] Care Team Providers Care Convalescent Sitter Name Role Phone Nikos Arango MD Unavailable Sharon Zimmer MD Primary Care Provider [phone] Baudilio Shipley MD Primary Care Provider [phone] Encounter Details Date Type Department Care Team (Late [facility]) Description 02/02/2018 Lab Requisition [facility] [address] [facility] [place] [address] Montserrat Stoll MD [address] [facility] [address] [place] [address] Social History Tobacco Use Types Packs/Day Years [...] Procedure Name Priority Date/Time Associated Diagnosis Comments DERMATOPATH TECHNICAL REPORT Routine 02/01/2018 12:00 AM FORGER HELPER documented in this encounter Results * DERMATOPATH TECHNICAL REPORT (02/01/2018 12:00 AM FORGER HELPER) Case Report Dermatopathology Report Case: [id number] Authorizing Provider: Montserrat Stoll MD Collected: 02/01/2018 12:00 AM Pathologist: Brook Langston MD Received: 02/02/2018 06:43 AM Specimens: A) - Skin, right mid thigh B) - Skin, left FA inferior 8 10:18 AM FORGER HELPER DERMATOPATHOLOGY LABORATORY Addendum 1 At the request of the diagnosing physician, the technical component for [id number] on Specimen A was performed by [facility] Dermatopathology Laboratory. 8 10:18 AM FORGER HELPER DERMATOPATHOLOGY LABORATORY Addendum electronically signed by Brook Langston MD on 02/14/2018 at 1018 FORGER HELPER Clinical History A-B: R/O SCC, irritated, non-healing.Check margins. 10:18 AM [facility] DERMATOPATHOLOGY LABORATORY Gross Description Specimen A: Received is one formalin filled container labeled with the patient's name and designated right mid thigh. The specimen consists of a shave measuring [id number]. The margin is inked green. Jar 0. Specimen B: Received is one formalin filled container labeled with the patient's name and designated left FA inferior. The specimen consists of a shave measuring [id number]. The margin is inked green. Jar 0. [facility] Dermatopathology Laboratory performed the technical component only. 10:18 AM [facility] DERMATOPATHOLOGY LABORATORY Embedded Images 10:18 AM [facility] DERMATOPATHOLOGY LABORATORY DISCLAIMER An external and internal positive and negative controls are appropriate for the histochemical, immunohistochemical and immunofluorescence stain(s) in this case (if any), except where stated explicitly. The performance characteristics of the stain(s) cited in this report were developed and its performance characteristic determined by the Dermatopathology Laboratory at [facility]. These tests need not be, and therefore are not, approved by the [place] Food and Drug Administration. The tests are used for clinical purposes. 10:18 AM [facility] DERMATOPATHOLOGY LABORATORY at 1312 FORGER HELPER Pathology/Cytology TISSUE SPECIMEN FROM SKIN / Unknown 02/01/2018 02/02/2018 6:43 AM FORGER HELPER Miscellaneous samples (specimen) TISSUE SPECIMEN FROM SKIN / Unknown 02/01/2018 02/02/2018 6:43 AM FORGER HELPER Montserrat Stoll MD LAB - PATHOLOGY/CYTOLOGY OR DERABLES Edited Result - Final DERMATOPATHOLOGY LABORATORY [facility] - Department of Dermatology [address] 5th [place] [address], [facility] [phone] documented in this encounter Visit Diagnoses Not on filedocumented in this encounter Care Teams Convalescent Sitter Relationship Specialty Start Date End Date Sharon Zimmer MD [address] [facility] [address] [place] [address] PCP - General Gastroenterology 08/24/16 11/23/21 [place] [address] [place] [id number] PCP - General Internal Medicine 11/24/21 [place] [address] [place] [address] Orthopedic Surgery 12/31/14 documented as of this encounter
--- OUTSIDE RECORDS SUMMARY | 2024-09-12 11:32 | XMS_ITS | Referral Summary ---
Author Organization [facility] Address [address] [place] [address] Care Team Providers Care Senior Database Administrator Name Role Phone Jose Garsia Unavailable Unavailable Jayshree Nichols MD Unavailable [phone] Toshia Real DPT Unavailable [phone] Shelby Hatch DPT Unavailab le Baudilio Shipley MD Primary Care Provider [phone] Encounters Date Type Department Care Team Description 08/14/2024 Orders [address] [address] [facility] [address] [place] [address] Baudilio Shipley MD 08/10/20[address] Orders [address] [address] [facility] [address] [place] [address] Baudilio Shipley MD B12 deficiency (Primary Dx) 08/08/2024 9:00 AM CDT Office Visit [facility] [address] [facility] [address] [place] [address] Baudilio Shipley MD Unspecified general medical examination (Primary Dx); Vitamin D deficiency from Last 3 Months Allergies Active Allergy Reactions Criticality Noted Date [...] capsule (200 mg total) by mouth daily Active cholecalciferol (VITAMIN D-3) 2000 unit tablet [...] I deferred any further follow-up to her laborer cheesemaking. I did reassured that I do not [...] 2x weekly. This is prescribed by her Stripper Cutter Machine Dr. Pozo. Presence of intraocular lens 12/10/2020 Preglaucoma, unspecified, unspecified eye 2020 Derangement of meniscus 08/10/2019 Squamous cell carcinoma 08/10/2019 Primary osteoarthritis of right hip 04/20/2018 Overview (04/20/2018): Added automatically from request for surgery [id number] History of right knee joint replacement 08/24/19 [...] (12/26/2018): Added automatically from request for surgery [id number] Trochanteric bursitis of right hip 06/14/2017 08/14/2023 Hip pain 02/17/2017 08/14/2023 Pain in female pelvis 02/17/20172023 Urinary urgency 02/17/2017 08/14/2023 Increased frequency of urination 02/17/2017 08/14/2023 Immunizations Immunization Administration Dates Next Due COVID-19 [...] ZOSTER Recombinant 01/09/2018, 8,01/08/2018,01/08,08/26/2017,08/26/2017 Zoster, unspecified 03/08/2018,03/08/2018 Social History Tobacco Use Types Packs/Day Years Used Date Smoking Tobacco: Never Smokeless Tobacco: Never Tobacco Cessation:Counseling Given: Not Answered Alcohol Use Standard Drinks/Week Comments Yes 14 (1 standard drink = 0.6 oz pu re alcohol) 2 a [facility] Utilities Answer Date Recorded In the past 12 months has [employer], gas, oil, or water [employer] threatened to shut off services in your [...] 08/16/2023 How often do you attend chur ch or advent services? More than 4 times per year 08/16/2023 Do you belong to any clubs o r organizations such as holiness groups, unions, fraternal or athletic groups, or [...] any time in the past 12 m [place], were you homeless or living in a chcf (including now)? No 08/16/2023 Personal Safety Answer Date Recorded Have you ever been in or are you currently in a harmful physical or emotional relationship or is someone making you feel afraid or unsafe? Denies 08/14/2023 Comments No Sex and Gender Information Value Date Recorded Sex Assigned at Not on file Legal Sex Female 1:40 AM DAIRY BAR MANAGER Gender Identity Not on file Sexual Orientation Not on file Last Filed Vital Signs Vital Sign Reading [...] 08/15/2023 12:59 AM CDT Plan of Treatment Not on file Medical Devices Implanted Type Area Locker Operator Device Identifier Shelf Expiration Date Model / Serial / Lot [employer] [id number] Procotyl Prime 50mm Shell Acetabular Sterile - S0 - [id number] Implanted:Qty: 1 on 06/21/2018 by Abel Lund MD at [facility] Right: Hip [employer] 01/11/2026 [id number] / 0 / [id number] [employer] [id number] Procotyl Prime 36mm Liner Acetabular Sterile Latex Free - S0 - [id number] Implanted:Qty: 1 on 06/21/2018 by Abel Lund MD at [facility] Right: Hip [employer] 10/20/2025 [id number] / 0 / [id number] [employer] [id number] Dynasty Lineage 6.5mm 30mm Acetabular Screw Bone Biofoam - S0 - [id number] Implanted:Qty: 1 on 06/21/2018 by Abel Lund MD at [facility] Right: Hip [employer] 08/17/2025 [id number] / 0 / [id number] [employer] [id number] Dynasty Lineage 6.5mm 35mm Acetabular Screw Bone Biofoam - S0 - [id number] Implanted:Qty: 1 on 06/21/2018 by Abel Lund MD at [facility] Right: Hip [employer] 08/23/2025 [id number] / 0 / [id number] [employer] [id number] Profemur Tl Classic Long Varus Neck Hip 8d 6 Stem Femoral Sterile - S0 - [id number] Implanted:Qty: 1 on 06/21/2018 by Abel Lund MD at [facility] Right: Hip [employer] 01/05/2023 [id number] / 0 / [id number] [employer] [id number] 36mm -3.5mm 02/18 Short Neck Taper Head Femoral Biolox Delta - S0 - [id number] Implanted:Qty: 1 on 06/21/2018 by Abel Lund MD at [facility] Right: Hip [employer] 03/15/2026 [id number] / 0 / [id number] Procedures Procedure Name Priority Date/Time Associated Diagnosis [...] Read Routine (OP Routine) 01/13/2022 3:30 PM DAIRY BAR MANAGER 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 HM COLONOSCOPY Routine 03/08/2016 from Last 3 Months or Most Recently Relevant to Health Maintenance Results * Vitamin B12 (08/14/2024 9:31 AM CDT) Vitamin B12 530 200 - 1,100 pg/mL [facility] 08/14/2024 9:31 AM CDT 08/14/2024 9:31 AM CDT us Baudilio Shipley MD LAB BLOOD ORDERABLES Final R esult Performing Organization Address City/[facility] [address]/ZIP Co de Phone Number [facility] [address] [place] [address] * Thyroid Function Ware (08/08/2024 9:30 AM CDT) TSH 2.23 0.40 - 4.50 mIU/L [facility] Blood 08/08/2024 9:30 AM CDT 08/09/2024 10:36 AM CDT Narrative [facility] - 08/09/2024 12:00 PM CDT FASTING: UNKNOWN us Baudilio Shipley MD LAB BLOOD ORDERABLES Final R esult [facility] [address] [address] [address] * (ABNORMAL) CBC with auto differential (08/08/2024 9:30 AM CDT) [facility] WBC 4.5 3.8 - 10.8 Thousand/u L [...] Shipley MD LAB BLOOD ORDERABLES Final R [facility] Performing Organization Address [facility] [address]/[facility] Co de Phone Number [facility] [address] [place] [address] * Vitamin D 25 hydroxy (08/08/2024 9:30 AM CDT) Vitamin D 25-OH 46 30 - 100 [...] D, (D2,D3), LC/MS/MS is recommended: order code 63540 (patients >2yrs). See Note 1 Note 1 For additional information, please refer to http://education.Animalvitae/faq/JOU105 (This link is being provided for informational/ educational purposes only.) Blood 08/08/2024 9:30 AM CDT 08/09/2024 10:36 AM CDT Narrative [facility] - 08/09/2024 12:00 PM CDT FASTING: UNKNOWN Baudilio Shipley MD LAB BLOOD ORDERABLES Final R [facility] Performing Organization Address [facility] [address]/ZIP Co de Phone Number [facility] [address] [place] [address] * (ABNORMAL) Lipid panel (08/08/2024 9:30 AM [...] factors. LDL-C is now calculated using the Meka calculation, which is a validated novel method providing better accuracy than the Friedewald equation in the estimation of LDL-C. Tim SS et al. ROSELYN. 2013;310(19): 8383-9026 (http://education.Animalvitae/faq/BSJ848) Chol/HDL ratio 2.6 <5.0 (calc) [facility] [...] BLOOD ORDERABLES Final R esult [facility] [address] [place] [address] * Comprehensive metabolic panel (08/08/2024 9:30 AM CDT) [facility] Glucose 92 65 - 99 mg/dL [...] BLOOD ORDERABLES Final R esult [facility] [address] [place] [address] * Hepatitis panel, acute Blood (08/15/2023 5:34 AM CDT) Hep A IgM Nonreactive Nonreactive Comment: Interpretive Data: If Hep A IgM Ab is reported as Equivocal, a new sample should be drawn in two weeks for testing. Current interpretive data was last revised on 19. Hep B core IgM Nonreactive Nonreactive JOSÉ Comment: Interpretive Data If HepB Core IgM Ab is reported as Equivocal, a new sample should be drawn in two weeks for testing. Current interpretive data was last revised on 19. Hep C Ab Nonreactive Nonreactive JOSÉ Comment: Antibodies to HCV not detected. Does [...] last revised on 2019. HepBsAg Nonreactive Nonreactive JOSÉ Blood 08/15/2023 5:34 AM CDT 08/15/2023 9:56 AM CDT us Sanchez Vuong MD LAB MICROBIOLOGY - [facility] ORDERABLES Final Result [facility] [address] [facility] Department [place] [address] * Dexa Axial Skeleton Bone Density 1 or 2 Site (01/13/2022 3:30 PM DAIRY BAR MANAGER) Anatomical Region Laterality Modality Body N/A Mammography 01/13/2022 6:07 PM DAIRY BAR MANAGER Addenda Addendum by Deonna Newberry MD on 02/03/2022 2:38 PM DAIRY BAR MANAGER ADDENDUM: This addendum report supersedes the original report dated 01/13/2022 Additional history obtained: Osteoporosis. END OF ADDENDUM REPORT THIS IS AN ELECTRONICALLY VERIFIED FINAL REPORT 02/03/2022 2:38 PM Addendum Electronically signed by Deonna Newberry M.D. TW: ALEXA Report ID: [id number] Reading Location: [id number] Narrative 01/13/2022 6:08 PM DAIRY BAR MANAGER EXAM DESCRIPTION: DEXA AXIAL SKELETON BONE DENSITY 1 OR MORE SITES REASON FOR STUDY: 76 y/o year old F with given history of screening. Locker Operator/Model: Joinnus A (S/N [id number]) CLINICAL INFORMATION: Current height: 68.5 inches Maximum [...] Electronically signed by Deonna Newberry M.D. TW: ALEXA Report ID: [id number] Reading Location: [id number] Procedure Note Deonna Newberry MD - 01/13/2022 EXAM DESCRIPTION: DEXA AXIAL SKELETON BONE DENSITY 1 OR MORE SITES REASON FOR STUDY: 76 y/o year old F with given history ofscreening. Locker Operator/Model: Hologic Horizon A (S/N [id number]) CLINICAL INFORMATION: Current height: 68.5 inches Maximum [...] Deonna Newberry M.D. TW: TW Report ID: [id number] Reading Location: [place] [address] Baudilio Shipley MD IMG DXA PROCEDURES Edited Re sult - Final * COLONOSCOPY (03/08/2016) Colonoscopy Normal Historical Provider MD HEALTH MAINTENANCE Final Result from Last 3 Months or Most Recently Relevant to Health Maintenance Insurance MEDICARE [employer] SENIOR SUPPLEMENT [address] MEDICARE [employer] [place] MEDICARE [employer] [place] MEDICARE [facility] Advance Directives For more information, please contact: [phone] * Full Code (Latest Code Status on File) Date Activated Date Inactivated Comments 08/14/2023 11:28 PM 08/17/2023 9:28 PM * Full Code Date Activated Date Inactivated Comments 06/21/2018 2:02 PM 06/21/2018 11:18 PM Care Teams Senior Database Administrator Relationship Specialty Start Date End Date Baudilio Shipley MD [address] [facility] [place] [address] PCP - General Internal Medicine 01/13/21 Jose Garsia 08/23/17 Jayshree Nichols MD [address] [facility] [place] [address] Surgeon Orthopedic Surgery 08/24/17 Toshia Real DPT [address] [facility] [place] [address] Physical Therapist Physical Therapy 08/31/17 Shelby Hatch DPT [address] [facility] [place] [address] Physical Therapist Physical Therapy 11/01/18
--- OUTSIDE RECORDS SUMMARY | 2024-09-12 11:32 | XMS_ITS | Encounter Summary ---
Author Organization [facility] Address [address] [facility] [address] Care Team Providers Care Mechanical Assembler Name Role Phone Nikos Arango MD Unavailable Sharon Zimmer MD Primary Care Provider [phone] Baudilio Shipley MD Primary Care Provider Encounter Details Date Type Department Care Team (Late [facility]) Description 01/30/2020 Lab Requisition [facility] [address] [facility], [place] [address] Montserrat Stoll MD [address] [facility] 3 [place] [address] Social History Tobacco Use Types Packs/Day Years [...] of Assessment Author No 12/24/2016 12:28 PM Branyd Chirinos RN * Does person have difficulty [...] Priority Date/Time Associated Diagnosis Comments DERMATOPATHOLOGY Routine 01/29/2020 12:0 0 AM LOGISTICS OFFICER documented in this encounter Results * DERMATOPATHOLOGY (01/29/2020 12:00 AM LOGISTICS OFFICER) Case Report Dermatopathology Report Case: [id number] Authorizing Provider: Montserrat Stoll MD Collected: 01/29/2020 12:00 AM Ordering Location: [facility] Lab Received: 01/30/2020 06:07 AM Pathologist: Cheyenne Feliz MD Specimen: Skin, right kelley 0 1:32 PM LOGISTICS OFFICER DERMATOPATHOLOGY LABORATORY Final Diagnosis Specimen A. 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 0 1:32 PM LOGISTICS OFFICER DERMATOPATHOLOGY LABORATORY Gross Description Specimen A: Received is one formalin filled container labeled with the patient's name and designated right kelley. The specimen consists of a shave measuring [id number]. Jar 0. 0 1:32 PM [facility] DERMATOPATHOLOGY LABORATORY Microscopic Description Specimen A. SKIN, right kelley: The epidermis shows parakeratosis, full thickness disorderly maturation of keratinocytes, mitoses at different levels, and dyskeratotic cells. The lesion extends to the base of the biopsy. COMMENT: An invasive squamous cell carcinoma cannot be ruled out. 0 1:32 PM [facility] DERMATOPATHOLOGY LABORATORY Disclaimer An external and internal positive and negative controls are appropriate for the histochemical, immunohistochemical and immunofluorescence stain(s) in this case (if any), except where stated explicitly. The performance characteristics of the stain(s) cited in this report were developed and its performance characteristic determined by the Dermatopathology Laboratory at [facility], directed by Dr. Lucian Guthrie. These tests need not be, and therefore are not, approved by the [place] Food and Drug Administration. The tests are used for clinical purposes. Billing Codes Specimen Charges Stain Charges 06626 1 0 1:32 PM [facility] DERMATOPATHOLOGY LABORATORY Embedded Images 0 1:32 PM [facility] DERMATOPATHOLOGY LABORATORY Pathology/Cytolog y TISSUE SPECIMEN FROM SKIN / Unknown 01/29/2020 01/30/2020 6:07 AM LOGISTICS OFFICER Montserrat Stoll MD LAB - PATHOLOGY/CYTOLOGY OR DERABLES Final Result DERMATOPATHOLOGY LABORATORY [facility] - Department of Dermatology [facility] Specialized Medicine [address] [facility] 3rd Floor [place], [place] [address] [place] [address] documented in this encounter Visit Diagnoses Not on filedocumented in this encounter Care Teams Mechanical Assembler Relationship Specialty Start Date End Date Sharon Zimmer MD [address] [facility] [address] [place] [address] PCP - General Gastroenterology 08/24/16 11/23/21 [place] [address] [place] [address] PCP - General Internal Medicine 11/24/21 [place] [address] [place] [address] Orthopedic Surgery 12/31/14 documented as of this encounter
--- OUTSIDE RECORDS SUMMARY | 2024-09-12 11:32 | XMS_ITS | Encounter Summary ---
Author Organization [facility] Facility Care Team Providers Care Manager Quantitative Name Role Phone Sharon Zimmer MD Primary Care Provider [phone] Jose Garsia Unavailable Unavailable Jayshree Nichols MD Unavailable [phone] Toshia Real DPT Unavailable [phone] Maeve Rubi RN Unavailable UnavailMicky Cee MD PhD Primary Care Provider + Shelby Hatch DPT Unavailab le Baudilio Shipley MD Primary Care Provider [phone] Gail Jean DPT Unavailable [phone] Encounter Details Date Type Department Care Team (Latest Contact Info) Description 10/06/2015 Orders Only [facility] CLIN[facility] ProviderBurak MD [address] [place] [address] Social History Tobacco Use Types Packs/Day Years Used Date Smoking Tobacco: Former Cigarettes Q uit: 03/08/1969 Alcohol Use Standard Drinks/Week Comments Yes 0 (1 standard drink = 0.6 oz pur e alcohol) Comments Unknown Sex and Gender Information Value Date Recorded Sex Assigned at Not on file Legal Sex Female 1:40 AM STONEMASON HELPER Gender Identity Not on file Sexual Orientation Not on file documented as of this encounter Plan of Treatment Not on file documented as of this encounter Procedures Procedure Name Priority Date/Time Associated Diagnosis Comments SCAN - LABS 10/07/2015 12:00 AM CDT documented in this encounter Results * SCAN - LABS (10/07/2015 12:00 AM CDT) Narrative 10/07/2015 12:00 AM CDT Ordered by an unspecified provider. Historical Provider Final Res ult documented in this encounter Visit Diagnoses Not on filedocumented in this encounter Care Teams Manager Quantitative Relationship Specialty [place] [address] [place] [address] PCP - General 10/13/16 08/21/18 Micky Olivares MD PhD [address] [facility] [address] [place] [address] PCP - General Internal Medicine 08/22/18 01/12/21 Baudilio Shipley MD [address] [facility] [address] [place] [address] PCP - General Internal Medicine 01/13/21 Jose Garsia 08/23/17 Jayshree Nichols MD [address] [facility] [place] [address] Surgeon Orthopedic Surgery 08/24/17 Toshia Real DPT [address] [facility] [place] [address] Physical Therapist Physical Therapy 08/31/17 Maeve Rubi appeals representative 05/23/18 09/30/18 Shelby Hatch, DPT [address] [facility] [address] [place] [address] Physical Therapist Physical Therapy 11/01/18 Gail Jean DPT [address] [facility] [address] [place] [address] Physical Therapist Physical Therapy 01/14/21 09/09/21 documented as of this encounter
--- OUTSIDE RECORDS SUMMARY | 2024-09-12 11:32 | XMS_ITS | Encounter Summary ---
Author Organization [facility] Facility Care Team Providers Care Administrator Of Home Health Name Role Phone Sharon Zimmer MD Primary Care Provider [phone] Jose Garsia Unavailable Unavailable Jayshree Nichols MD Unavailable [phone] Toshia Real DPT Unavailable [phone] Maeve Rubi RN Unavailable UnavailMicky Cee MD PhD Primary Care Provider + Shelby Hatch DPT Unavailab le Baudilio Shipley MD Primary Care Provider [phone] Gali Jean DPT Unavailable [phone] Encounter Details Date Type Department Care Team (Latest Contact Info) Description 05/07/2015 Orders Only [facility] CLINCONV ProviderBurak MD [address] [place] [address] Social History Tobacco Use Types Packs/Day Years Used Date Smoking Tobacco: Former Cigarettes Q uit: 03/08/1969 Alcohol Use Standard Drinks/Week Comments Yes 0 (1 standard drink = 0.6 oz pur e alcohol) Comments Unknown Sex and Gender Information Value Date Recorded Sex Assigned at Not on file Legal Sex Female 1:40 AM FOUNDRY OPERATOR Gender Identity Not on file Sexual Orientation Not on file documented as of this encounter Plan of Treatment Not on file documented as of this encounter Procedures Procedure Name Priority Date/Time Associated Diagnosis Comments SCAN - LABS 11/28/2015 12:00 AM CDT documented in this encounter Results * SCAN - LABS (11/28/2015 12:00 AM CDT) Narrative 11/28/2015 12:00 AM CDT Ordered by an unspecified provider. Historical Provider Final Res ult documented in this encounter Visit Diagnoses Not on filedocumented in this encounter Care Teams Administrator Of Home Health Relationship Specialty [place] [address] [place] [address] PCP - General 10/13/16 08/21/18 Micky Olivares MD PhD [address] [facility] [address] [place] [address] PCP - General Internal Medicine 08/22/18 01/12/21 Baudilio Shipley MD [address] [facility] [address] [place] [address] PCP - General Internal Medicine 01/13/21 Jose Garsia 08/23/17 Jayshree Nichols MD [address] [facility] [place] [address] Surgeon Orthopedic Surgery 08/24/17 Toshia Real DPT [address] [facility] [place] [address] Physical Therapist Physical Therapy 08/31/17 Maeve Rubi double cut off saw operator 05/23/18 09/30/18 Shelby Hatch, DPT [address] [facility] [address] [place] [address] Physical Therapist Physical Therapy 11/01/18 Gail Jean DPT [address] [facility] [address] [place] [address] Physical Therapist Physical Therapy 01/14/21 09/09/21 documented as of this encounter
--- OUTSIDE RECORDS SUMMARY | 2024-09-12 11:32 | XMS_ITS | Encounter Summary ---
Author Organization [facility] Health Address [address] [facility] [place] [address] Care Team Providers Care Fitter Mechanic Name Role Phone Nikos Arango MD Unavailable Sharon Zimmer MD Primary Care Provider [phone] Baudilio Shipley MD Primary Care Provider Encounter Details Date Type Department Care Team (Late Contact [facility]) Description 06/02/2018 Lab Requisition [facility] Care DermPath Lab [address] [facility] [place] [address] Montserrat Stoll MD [address] [facility] [address] [place] [address] Social History Tobacco Use Types Packs/Day Years [...] Priority Date/Time Associated Diagnosis Comments DERMATOPATHOLOGY Routine 06/01/2018 12:0 0 AM CDT documented in this encounter Results * DERMATOPATHOLOGY (06/01/2018 12:00 AM CDT) Case Report Dermatopathology Report Case: [id number] Authorizing Provider: Montserrat Stoll MD Collected: 06/01/2018 12:00 AM Pathologist: Randall Guthrie MD Received: 06/02/2018 08:43 AM Specimen: Skin, right chest 9 1:21 PM CDT DERMATOPATHOLOGY LABORATORY Final Diagnosis Specimen A. SKIN, right chest: LICHEN PLANUS-LIKE KERATOSIS (BENIGN LICHENOID KERATOSIS) (L82.1) PRESENT AT MARGIN 9 1:21 PM CDT DERMATOPATHOLOGY LABORATORY at 1321 CDT Clinical History SCC. Check margins 9 1:21 PM CDT DERMATOPATHOLOGY LABORATORY Gross Description Specimen A: Received is one formalin filled container labeled with the patient's name and designated right chest. The specimen consists of a shave biopsy measuring 6x5x1 mm, inked. Jar 0. 1:21 PM CDT DERMATOPATHOLOGY LABORATORY Microscopic Description Specimen A. SKIN, right chest: The epidermis is mildly acanthotic. There is a lichenoid infiltrate with vacuolar changes of basilar keratinocytes and scattered necrotic keratinocytes.This lesion is present at the margin of the specimen. 1:21 PM CDT DERMATOPATHOLOGY LABORATORY Disclaimer An external and internal positive and negative controls are appropriate for the histochemical, immunohistochemical and immunofluorescence stain(s) in this case (if any), except where stated explicitly. The performance characteristics of the stain(s) cited in this report were developed and its performance characteristic determined by the Dermatopathology Laboratory at [facility], directed by Dr. Lucian Guthrie. These tests need not be, and therefore are not, approved by the [place] Food and Drug Administration. The tests are used for clinical purposes. Billing Codes Specimen Charges Stain Charges 54840 1 1:21 PM CDT DERMATOPATHOLOGY LABORATORY Embedded Images 1:21 PM CDT DERMATOPATHOLOGY LABORATORY Pathology/Cytolog y TISSUE SPECIMEN FROM SKIN / Unknown 06/01/2018 06/02/2018 8:43 AM CDT Montserrat Stoll MD LAB - PATHOLOGY/CYTOLOGY OR DERABLES Final Result DERMATOPATHOLOGY LABORATORY [facility] - Department of Dermatology [address] [facility], 5th Floor Lab B [address] [phone] documented in this encounter Visit Diagnoses Not on filedocumented in this encounter Care Teams Fitter Mechanic Relationship Specialty Start Date End Date Sharon Zimmer MD [address] [facility] [address] [place] [address] PCP - General Gastroenterology 08/24/16 11/23/21 [place] [address] [facility] - [address] [place] [address] PCP - General Internal Medicine 11/24/21 [place] [address] [address] Orthopedic Surgery 12/31/14 documented as of this encounter
--- OUTSIDE RECORDS SUMMARY | 2024-09-12 11:32 | XMS_ITS | Encounter Summary ---
Author Organization [facility] Health Address [address] [facility] [place] [address] Care Team Providers Care Post Doctoral Fellow Name Role Phone Nikos Arango MD Unavailable Sharon Zimmer MD Primary Care Provider [phone] Baudilio Shipley MD Primary Care Provider [phone] Encounter Details Date Type Department Care Team (Late [facility]) Description 04/12/2018 Lab Requisition [facility] Care DermPath Lab [address] [facility], [place] [address] Montserrat Stoll MD [address] [facility] 3 [place] [address] Social History Tobacco Use Types Packs/Day Years [...] Assessment Author No 12/24/2016 12:28 PM Brandy Chriinos RN * Is person blind or have [...] Priority Date/Time Associated Diagnosis Comments DERMATOPATHOLOGY Routine 04/12/2018 12:0 0 AM DRUG DISCOVERY INFORMATICS SPECIALIST documented in this encounter Results * DERMATOPATHOLOGY (04/12/2018 12:00 AM DRUG DISCOVERY INFORMATICS SPECIALIST) Case Report Dermatopathology Report Case: [id number] Authorizing Provider: Montserrat Stoll MD Collected: 04/12/2018 12:00 AM Pathologist: Brook Langston MD Received: 04/12/2018 02:40 PM Specimen: Skin, left FA inferior 9 3:06 PM DRUG DISCOVERY INFORMATICS SPECIALIST DERMATOPATHOLOGY LABORATORY Final Diagnosis Specimen A. SKIN, left FA inferior: DERMAL SCAR - RESIDUAL TUMOR IS NOT IDENTIFIED (L90.5) SCAR PRESENT AT MARGIN 9 3:06 PM DRUG DISCOVERY INFORMATICS SPECIALIST DERMATOPATHOLOGY LABORATORY at 1506 DRUG DISCOVERY INFORMATICS SPECIALIST Clinical History R/O biopsy proven. 9 3:06 PM DRUG DISCOVERY INFORMATICS SPECIALIST DERMATOPATHOLOGY LABORATORY Gross Description Specimen A: Received is one formalin filled container labeled with the patient's name and designated left FA inferior. The specimen consists of a non-oriented ellipse of skin measuring [id number]. The epidermal surface consists of a centrally located 67p73ce previous biopsy site. The margin is inked green. The 12 o'clock and 6 o'clock tips are submitted in cassette 1. The remainder of the ellipse is serially sectioned and submitted in cassettes 2-4. Jar 0. 9 3:06 PM [facility] DERMATOPATHOLOGY LABORATORY Microscopic Description Specimen A. SKIN, left FA inferior: There are fibroblasts and collagen bundles oriented parallel to the skin surface. There are elongated blood vessels, some of which are oriented perpendicular to the skin surface. No residual tumor is identified. Scar is present at both lateral margins of the specimen in blocks 2 and 3. 9 3:06 PM [facility] DERMATOPATHOLOGY LABORATORY Disclaimer An external and internal positive and negative controls are appropriate for the histochemical, immunohistochemical and immunofluorescence stain(s) in this case (if any), except where stated explicitly. The performance characteristics of the stain(s) cited in this report were developed and its performance characteristic determined by the Dermatopathology Laboratory at [facility], directed by Dr. Lucian Guthrie. These tests need not be, and therefore are not, approved by the [place] Food and Drug Administration. The tests are used for clinical purposes. Billing Codes Specimen Charges Stain Charges 23383 1 9 3:06 PM [facility] DERMATOPATHOLOGY LABORATORY Embedded Images 9 3:06 PM [facility] DERMATOPATHOLOGY LABORATORY Pathology/Cytolog y TISSUE SPECIMEN FROM SKIN / Unknown 04/12/2018 04/12/2018 2:40 PM DRUG DISCOVERY INFORMATICS SPECIALIST Montserrat Stoll MD LAB - PATHOLOGY/CYTOLOGY OR DERABLES Final Result DERMATOPATHOLOGY LABORATORY [facility] - Department of Dermatology [address] [facility], 5th [place] [address], [facility] [phone] documented in this encounter Visit Diagnoses Not on filedocumented in this encounter Care Teams Post Doctoral Fellow Relationship Specialty Start Date End Date Sharon Zimmer MD [address] [facility] [address] [place] [address] PCP - General Gastroenterology 08/24/16 11/23/21 [place] [address] [facility] - [address] [place] [address] PCP - General Internal Medicine 11/24/21 [place] [address] [facility] [address] [place] [address] Orthopedic Surgery 12/31/14 documented as of this encounter
--- OUTSIDE RECORDS SUMMARY | 2024-09-12 11:32 | XMS_ITS | Clinical Summary ---
Author Organization [facility] Address [address] [place] [address] Care Team Providers Care Sluice Tender Name Role Phone None, Provider MD Primary Care Provider Unavaila ble Allergies Active Allergy Reactions Criticality Noted Date Comments Codeine Nausea Only 09/01/2018 Medications multi vitamin/mineral s tablet Take 1 tablet by mouth daily. Active calcium carbonate 1500 (600 Ca) MG tablet Take 1,500 mg by mouth 2 (two) times daily with meals. Active Multiple Vitamins-Minera ls (PRESERVISION AREDS) Tab Active celecoxib 100 MG capsule celecoxib 100 mg capsule Active Family History Medical History Relation Comments Hypertension Father Hypertension Mother Relation Status Comments Father Mother Social History Tobacco Use Types Packs/Day Years Used Date Smoking Tobacco: Never Smokeless Tobacco: Never Alcohol Use Standard Drinks/Week Comments Yes 11.7 (1 standard drink = 0.6 oz pure alcohol) Comments No Sex and Gender Information Value Date Recorded Sex Assigned at Not on file Legal Sex Female 7:33 PM CDT Gender Identity Not on file Sexual Orientation Not on file Last Filed Vital Signs Vital Sign Reading Time Taken Comments Blood Pressure 143/79 12/10/2020 8:12 AM CDT Pulse 65 12/10/2020 8:12 AM CDT Temperature 36.6 C (97.8 F) 12/10/2020 8:12 AM CDT Respiratory Rate 18 12/10/2020 8:12 AM CDT Oxygen Saturation 100% 12/10/2020 8:12 AM CDT Inhaled Oxygen Concentration - - Weight 65.8 kg (145 lb) 12/10/2020 8:12 AM CDT Height 175.3 cm (5' 9) 12/10/2020 8:12 AM CDT Body Mass Index 21.41 12/10/2020 8:12 AM CDT Plan of Treatment Health Maintenance Due Date Last Done Comments Hepatitis C 10/09/1963 Annual Medicare Wellness Visit 10/09/2012 Dexa Scan (General) 10/09/2012 RSV Immunization or 60+ Years (1 - 1-dose 75+ series) 10/09/2022 COVID-19 Vaccine ( - season) 2023 04/26/2020, 03/28/2020 DTaP, Tdap and Td Vaccines (4 - Td or Tdap) 12/18/2028 12/18/2018, 12/16/2018, 11/08/2016 Pneumococcal Vaccine: 50+ Years Completed 02/15/2018, 03/08/2017, 11/08/2016, Additional history exists Zoster Vaccines Completed 03/08/2018, 06/2017, 01/08/2018, Additional history exists Meningococcal B Vaccine Aged Out No l onger eligible based on patient's age to complete this topic Meningococcal Vaccine Aged Out No kristen mala eligible based on patient's age to complete this topic RSV Immunizations Under 20 Months Aged Out No longer eligible based on patient's age to complete this topic Additional Health Concerns Infection Onset Date Last Indicated ESBL - Extended Spectrum Bet a-lactamase Comment:12/10/20 +ESBL Urine 12/12/2020 12/12/2020 [place] [id number] [facility] Care Teams Sluice Tender Relationship Specialty Start Date End Date None, Provider, PCP - General 12/10/20
--- OUTSIDE RECORDS SUMMARY | 2024-09-12 11:32 | XMS_ITS | Encounter Summary ---
Author Organization [facility] Healthcare Address [address] [place] [address] Care Team Providers Care Business Administration Professor Name Role Phone Sharon Zimmer MD Primary Care Provider [phone] Jose Garsia Unavailable Unavailable Jayshree Nichols MD Unavailable [phone] Toshia Real DPT Unavailable [phone] Maeve Rubi RN Unavailable UnavailMicky Cee MD PhD Primary Care Provider + Shelby Hatch DPT Unavailab le Baudilio Shipley MD Primary Care Provider [phone] Gail Jean DPT Unavailable [phone] Encounter Details Date Type Department Care Team (Late st Contact Info) Description 06/22/[address] [facility] Case Management [id number] [address] [id number] Maeve Rubi, RN Social History Tobacco Use Types Packs/Day Years Used Date Smoking Tobacco: Never Smokeless Tobacco: Never Alcohol Use Standard Drinks/Week Comments Yes 0 (1 standard drink = 0.6 oz pur e alcohol) AUDIT-C Answer Date Recorded Frequency of Alcohol Consumption 4 or more times a week 05/23/2018 Average Number of Drinks 1 or 2 019 Frequency of Binge Drinking Never 05/06 Comments No Sex and Gender Information Value Date Recorded Sex Assigned at Not on file Legal Sex Female 1:40 AM RECORDS ADMINISTRATOR Gender Identity Not on file Sexual Orientation Not on file documented as of this encounter Plan of Treatment Not on file documented as of this encounter Visit Diagnoses Not on filedocumented in this encounter Care Teams Business Administration Professor Relationship Specialty [place] [address] [place] [address] PCP - General 10/13/16 08/21/18 Micky Olivares MD PhD [address] [place] [address] PCP - General Internal Medicine 08/22/18 01/12/21 Baudilio Shipley MD [address] [place] [address] PCP - General Internal Medicine 01/13/21 Jose Garsia 08/23/17 Jayshree Nichols MD [address] [facility] [place] [address] Surgeon Orthopedic Surgery 08/24/17 Toshia Real DPT [address] [facility] [place] [address] Physical Therapist Physical Therapy 08/31/17 Maeve Rubi, network coordinator 05/23/18 09/30/18 Shelby Hatch, LORETOT [address] [place] [address] Physical Therapist Physical Therapy 11/01/18 Gail Jean DPT [address] [facility] [address] [place] [address] Physical Therapist Physical Therapy 01/14/21 09/09/21 documented as of this encounter
--- OUTSIDE RECORDS SUMMARY | 2024-09-12 11:32 | XMS_ITS | Encounter Summary ---
Author Organization [facility] Care Team Providers Care Levelman Name Role Phone Sharon Zimmer MD Primary Care Provider [phone] Jose Garsia Unavailable Unavailable Jayshree Nichols MD Unavailable [phone] Toshia Real DPT Unavailable [phone] Maeve Rubi RN Unavailable UnavailMicky Cee MD PhD Primary Care Provider + Shelby Hatch DPT Unavailab le Baudilio Shipley MD Primary Care Provider [phone] Gail Jean DPT Unavailable [phone] Encounter Details Date Type Department Care Team (Latest Contact Info) Description 05/11/2016 Orders Only [facility]INCON[facility] ProviderBurak MD [address] [place] [address] Social History Tobacco Use Types Packs/Day Years Used Date Smoking Tobacco: Former Cigarettes Q uit: 03/08/1969 Alcohol Use Standard Drinks/Week Comments Yes 0 (1 standard drink = 0.6 oz pur e alcohol) Comments Unknown Sex and Gender Information Value Date Recorded Sex Assigned at Not on file Legal Sex Female 1:40 AM PER ASSESSMENT NURSE Gender Identity Not on file Sexual Orientation Not on file documented as of this encounter Plan of Treatment Not on file documented as of this encounter Procedures Procedure Name Priority Date/Time Associated Diagnosis Comments SCAN - LABS 05/13/2016 12:00 AM PER ASSESSMENT NURSE documented in this encounter Results * SCAN - LABS (05/13/2016 12:00 AM PER ASSESSMENT NURSE) Narrative 05/13/2016 12:00 AM PER ASSESSMENT NURSE Ordered by an unspecified provider. Historical Provider Final Res ult documented in this encounter Visit Diagnoses Not on filedocumented in this encounter Care Teams Levelman Relationship Specialty [place] [address] [place] [address] PCP - General 10/13/16 08/21/18 Micky Olivares MD PhD [address] [facility] [address] [place] [address] PCP - General Internal Medicine 08/22/18 01/12/21 Baudilio Shipley MD [address] [facility] [address] [place] [address] PCP - General Internal Medicine 01/13/21 Jose Garsia 08/23/17 Jayshree Nichols MD [address] [facility] [place] [address] Surgeon Orthopedic Surgery 08/24/17 Toshia Real DPT [address] [facility] [address] Physical Therapist Physical Therapy 08/31/17 Maeve Rubi, senior management consultant 05/23/18 09/30/18 Shelby Hatch, DPT [address] [facility] [address] [place] [address] Physical Therapist Physical Therapy 11/01/18 Gail Jean, LORETOT [address] [facility] [address] [place] [address] Physical Therapist Physical Therapy 01/14/21 09/09/21 documented as of this encounter
--- OUTSIDE RECORDS SUMMARY | 2024-09-12 11:32 | XMS_ITS ---
Author Organization [facility] Address [address] [place] [address] Care Team Providers Care Contact Center Agent Name Role Phone Jose Garsia Unavailable Unavailable Jayshree Nichols MD Unavailable [phone] Toshia Real DPT Unavailable [phone] Shelby Hatch DPT Unavailab le Baudilio Shipley MD Primary Care Provider [phone] Active Problems Problem Noted Date Diagnosed Date Pyelonephritis 08/14/2023 Lip lesion 01/05/2023 Assessment & Plan (01/06/2023 8:18 PM CDT): Her lower lip is healing well and I do not find any significant problems. 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 I did reassured that I do not [...] 2x weekly. This is prescribed by her Asphalt Raker Dr. Pozo. 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 Past Treatment and Therapy Plans No past plan information found. Lifetime Dose Tracking * Chemical Lifetime Dose Automatic Entry Manual Entr y Fluoro Time 0.3 minutes 0.3 minutes 0 minutes DLP 524 mGycm 524 mGycm 0 mGycm Resolved Problems Problem Noted Date Diagnosed Date [...] (12/26/2018): Added automatically from request for surgery [id number] Trochanteric bursitis of right hip 06/14/2017 08/14/2023 Hip pain 02/17/2017 08/14/2023 Pain in female pelvis 02/17/20172023 Urinary urgency 02/17/2017 08/14/2023 Increased frequency of urination 02/17/2017 08/14/2023
--- OUTSIDE RECORDS SUMMARY | 2024-09-12 11:32 | XMS_ITS | Clinical Summary ---
Author Organization [facility] Address [address] [place] [address] Care Team Providers Care Superintendent Schools Name Role Phone Nikos Arango MD Unavailable [phone] Baudilio Shipley MD Primary Care Provider [phone] Source Comments [facility],non-owned Affiliates and Associated Physician Practices is amultiple site organization consisting of ambulatory clinics and hospital sitesin [place], [place], [place] and [place]. This disclosure is being madepursuant to the Care Everywhere program and may not contain all information available regarding this patient. Last updated 17.[facility] Allergies Active Allergy Reactions Criticality Noted Date Comments Codeine Nausea and/or Vomiting Medium 11/26/2016 Other reaction(s): Nausea And Vomiting Propoxyphene N-Apap Nausea and/or Vomiting 06/10/2020 Latex Skin Reactions Low 01/07/2023 Reports some slight irritation Medications * Be aware that medications may not be up to date on this document. Alwaysverify current medications with the patient. fluorouracil (EFUDEX) 5 % creamIndication s:Basal Cell Carcinoma of Skin APPLY TO AFFECTED AREA TWICE A DAY FOR 4 WEEKS 6 8 Active Multiple Vitamins-Minera ls (Centrum Silver) TABSIndications :supplement Take 1 (one) tablet by mouth daily with food Reasons: supplement Active Vitamin D3, cholecalciferol , 50 MCG (2000 UT) tabletIndicatio ns:Vitamin D Deficiency Take 1 tablet by mouth once daily Reasons: Vitamin D Deficiency Active Turmeric (QC TUMERIC COMPLEX PO)Indications: supplement Take 2,000 mg by mouth once daily Reasons: supplement Active CRANBERRY-VITAM IN C-D MANNOSE POIndications:u rinary health Take 1,300 mg by mouth once daily Reasons: urinary health Active docusate sodium (Stool Softener) 100 MG capsuleIndicati ons:Constipatio n Take 100 mg by mouth 2 times daily as needed for Constipation. Indications: Constipation 3 Active celecoxib (CeleBREX) 200 MG capsuleIndicati ons:Osteoarthri tis TAKE 1 CAPSULE BY MOUTH TWICE A DAY 60 capsule 5 4 Active Active Problems Problem Noted Date Diagnosed Date Presence of left artificial knee joint 4 Derangement of meniscus 08/10/2019 Knee pain 08/10/2019 Squamous cell carcinoma 08/10/2019 Screening for colon cancer 12/26/2018 Overview (06/14/2020): Added automatically from request for surgery [id number] Primary osteoarthritis of right hip 04/20/2018 Overview (06/14/2020): Added automatically from request for surgery [id number] History of right knee joint replacement 08/24/19 18 Primary osteoarthritis of left knee 08/23/2017 Hip pain 02/17/2017 Basal cell carcinoma of skin 11/28/2015 Overview (06/14/2020): left cheek r lower leg Personal history of breast cancer 10/18/2015 Overview (06/14/2020): Right, bilat mastectomy, prophylactic on left Urge incontinence of urine 10/18/2015 Primary osteoarthritis of both knees 04/01/2015 Unknown and unspecified causes of morbidity 03/08 Overview (06/14/2020): Overview: History of breast cancer History of breast cancer Overview: Overview: History of breast cancer Osteoarthrosis 03/08/1999 Overview (06/14/2020): Osteoarthritis Insomnia 03/08/1999 Resolved Problems Problem Noted Date Diagnosed Date Resolved Date Trochanteric bursitis of right hip 06/14/2017 03/10/2022 Immunizations Immunization Administration Dates Next Due INFLUENZA VACCINE, TRIV. (AF LURIA, FLUZONE TRIVALENT; 6MO+) (IIV3) 12/05/2012 FLU VACCINE QUAD IIV4 SPLIT 0.25 ML IM 12/18/2018,11/28/2015 FLU VACCINE TRI IIV3 SPLIT P F IM (FLUVIRIN) 11/17/2014 INFLUENZA VACCINE 11/20/2019 INFLUENZA VACCINE, HIGH-DOSE , QUADR. (FLUZONE HIGH-DOSE QUADRIVALENT; 65Y+), 0.7 ML (HD-IIV4) 11/21/2019,11/12/2017,11/11/2017,2016 INFLUENZA VACCINE, QUADR. (F LUZONE; FLULAVAL; FLUARIX; AFLURIA QUADRIVALENT; 6MO+), 0.5 ML (IIV4) 12/16/2018 PNEUMOCOCCAL PPSV23 02/15/2018,2012,2011 Pneumococcal Pcv13 Conj 03/08/2017,11/08/2016 TDAP (7yrs+) 12/18/2018,12/16/2018,11/08/2016 ZOSTER HISTORIC VACCINE 03/08/2018 ZOSTER VACCINE, LIVE 03/08/2012 Zoster Hzv Vacc Recombinant Inj Im 01/09/2018,,08/26/2017 Social History Tobacco Use Types Packs/Day Years Used Date Smoking Tobacco: Never Smokeless Tobacco: Never Tobacco Cessation:Counseling Given: Not Answered Alcohol Use Standard Drinks/Week Comments Yes 8 [...] Date Recorded Patient Health Questionnaire-2 Score 0 11/04/2023 [facility] - Occupational Stress [...] place to sleep or slept in a residential (including now)? No 02/10/2023 Comments Unknown Sex and Gender Information Value Date Recorded Sex Assigned at Not on file Legal Sex Female 12:16 PM CDT Gender Identity Not on file Sexual Orientation Not on file Last Filed Vital Signs Vital Sign Reading Time Taken Comments Blood Pressure 104/62 02/26/2023 9:36 AM CIRCUIT JUDGE Pulse 76 02/26/2023 9:36 AM CIRCUIT JUDGE Temperature 36.4 C (97.6 F) 02/26/2023 9:36 AM CIRCUIT JUDGE Respiratory Rate 17 02/26/2023 9:36 AM CIRCUIT JUDGE Oxygen Saturation 98% 02/26/2023 9:36 AM CIRCUIT JUDGE Inhaled Oxygen Concentration - - Weight 66.1 kg (145 lb 12.8 oz) 02/10/2023 6:59 AM CIRCUIT JUDGE Height 175.3 cm (5' 9) 02/10/2023 6:59 AM CIRCUIT JUDGE Body Mass Index 21.53 02/10/2023 6:59 AM CIRCUIT JUDGE Plan of Treatment Health Maintenance Due Date Last Done Comments MEDICARE AWV 12 MONTHS 1945 HEPATITIS C SCREENING 10/05/1965 Respiratory Syncytial Virus (RSV) Vaccine Pt: or over 60 yrs (1 - 1-dose 75+ series) 10/09/2022 COVID-19 VACCINE ( season) 2023 12/31/2020, 04/26/2020, 03/28/2020 DEPRESSION SCREENING 03/08/2024 03/23/2023 INFLUENZA VACCINE (Season Ended) 2024 11/21/2019, 11/20/2019, 12/18/2018, Additional history exists DTAP/TDAP/TD VACCINES (4 - Td or Tdap) 12/18/2028 12/18/2018, 12/16/2018, 11/08/2016 PNEUMOCOCCAL VACCINE 50+ Completed 018, 03/08/2017, 11/08/2016, Additional history exists ZOSTER VACCINE Completed 03/08/2018, 06/2017, 01/08/2018, Additional history exists BONE DENSITY TESTING Completed 01/13/2022, 09/15/19 17 HEPATITIS B VACCINE Aged Out No longe r eligible based on patient's age to complete this topic HIB VACCINE Aged Out No longer eligi ble based on patient's age to complete this topic HPV VACCINE Aged Out No longer eligi ble based on patient's age to complete this topic MENINGOCOCCAL (Group B) VACCINE SHARED DECISION-MAKING Aged Out No longer eligible based on patient's age to complete this topic MENINGOCOCCAL GROUPS A/C/Y/W VACCINE Aged Out No longer eligible based on patient's age to complete this topic Medical Devices Implanted Type Area Community Living Coach Device Identifier Shelf Expiration Date Model / Serial / Lot Cmnt Bone Cblt 40gm Hvisc Strl Implanted:Qty: 1 on 12/24/2016 by Nikos Arango MD at [facility] Right: Knee [employer] 06/05/2018 [id number] / / [id number] Cmpnt Ptlr 31mm 1 Pg Wire Ascnt Arcm Kn Implanted:Qty: 1 on 12/24/2016 by Nikos Arango MD at [facility] Right: Knee [employer] 12/04/2021 [id number] / / [id number] Cmpnt Fem Kn Rt Cr Cmnt Prm Vngrd Intlk Implanted:Qty: 1 on 12/24/2016 by Nikos Arango MD at [facility] Right: Knee [employer] 11/16/2026 [id number] / / [id number] Tray Tib 75mm Kn Cocr I Beam Implanted:Qty: 1 on 12/24/2016 by Nikos Arango MD at [facility] Right: Knee [employer] [id number] / / [id number] Brng [id number] Vngrd Arcm Kn Ant Stab Implanted:Qty: 1 on 12/24/2016 by Nikos Arango MD at [facility] Right: Knee [employer] 11/21/2021 [id number] / / [id number] Brng [id number] Vngrd Arcm Kn Ant Stab Implanted:Qty: 1 on 02/10/2023 by Nikos Arango MD at [facility] Left: Knee [employer] 10/02/2027 [id number] / / [id number] Cmnt Bone Plc R 40gm Grn Implanted:Qty: 1 on 02/10/2023 by Nikos Arango MD at [facility] Left: Knee [employer] 06/05/2025 [id number] / / [id number] Tray Tib 71mm Kn Cocr I Beam Implanted:Qty: 1 on 02/10/2023 by Nikos Arango MD at [facility] Left: Knee [employer] 01/06/2033 [id number] / / [id number] Cmpnt Ptlr Std 28mm 3 Pg Kn Ser A Implanted:Qty: 1 on 02/10/2023 by Nikos Arango MD at [facility] Left: Knee [employer] 10/15/2027 [id number] / / [id number] Cmpnt Fem Kn Lt Cr Cmnt Prm Vngrd Intlk Implanted:Qty: 1 on 02/10/2023 by Nikos Arango MD at [facility] Left: Knee [employer] 11/25/2032 [id number] / / [id number] Insurance MEDICARE [place] [employer] MEDICARE [place] [address] Advance Directives Documents on File Type Date Recorded Patient Mortgage Loan Officer Originator Expl anation Adv Directive/Living Will/POA 12/28/2016 6:17 PM * Full Code (Latest Code Status on File) Date Activated Date Inactivated Comments 02/13/2023 10:41 AM To update the patient's code status, place a code status order. Do not modify or discontinue any currently active code status orders. * Full Code Date Activated Date Inactivated Comments 02/10/2023 12:39 PM 02/11/2023 2:52 PM * Full Code Date Activated Date Inactivated Comments 12/24/2016 11:57 AM 12/26/2016 1:21 PM Care Teams Superintendent Schools Relationship Specialty Start [place] [address] [address] PCP - General Internal Medicine 11/24/21 [place] [address] [address] Orthopedic Surgery 12/31/14
--- OUTSIDE RECORDS SUMMARY | 2024-09-12 11:33 | XMS_ITS | Data Portability ---
Author Organization [employer], [facility] Address [address] [place] [id number] Care Team Providers Care Inspector Balance Wheel Motion Name Role Phone NICOLASA GRAY Referring Provider Assessment No assessment recorded. Plan of Treatment Reminders Order Date Submit Date Provider Last Modified By Organization Details Last Modified Time Details Appointments None recorded. Lab None recorded. Referral None recorded. Procedures None recorded. Surgeries None recorded. Imaging x-ray, hip - rm 9 2013 014 [email or web address] Not available 4 15:58:52 x-ray, knee - Room 9 2013 014 [email or web address] Not available 4 10:58:57 Medication Orders hydrocodone 5 mg-acetamin ophen 325 mg tablet 2014 015 bdepriest [facility] [address], [address], 5 14:05:50 Vicodin 5 mg-300 mg tablet 2013 014 bdepriest [facility] [address], [address], 4 17:13:34 Patient TargetsNo targets recorded. Patient InstructionsNo instructions recorded. Reason for Referral None Reported. Problems Name Problem SNOMED Code Status Onset Date Resolution Date Notes Provider Name and Address Organization Details Recorded Time Knee pain Active Leticia Randy null, [place] 5 14:05:50 Osteoarthritis of knee 549585907 Active Leticia Randy null, [employer], [facility] 5 14:05:50 Derangement of meniscus 517458750 Active Leticia Randy null, [facility], [facility] 5 14:05:50 Pain of hip region 72387558 Active Leticia Randy null, [facility] [employer], [facility] 4 15:56:44 Problem Notes None recorded. Procedures Surgical History Date Name Laterality Status Provider Name and Address Organization Details Recorded Time 05/31/19 15 Generic [place] [address], [place], [address], [facility], [facility] 05/30/2014 14:08:49 02/08/20 14 Generic [place] [address], [place], [address], [facility], [facility] 02/07/2014 11:26:51 11/15/19 14 Generic [place] [address] [facility], [place], [address], [facility], [facility] 11/14/2013 15:49:16 03/08/19 05 [facility], [facility] 08/07/2013 16:07:46 09/05/18 93 Mastectomy completed [facility] [employer], [facility] 08/07/2013 15:58:18 Imaging Results None recorded. Procedure Notes None recorded. Medical Equipment None Reported. Allergies No known drug allergies Medications Name Sig Start Date Stop Date Status Note LastModified by Organization Details LastModified Time hydrocodone 5 mg-acetaminop hen 325 mg tablet Take 1-2 tables q4-6h PRN pain 2014 active Not Available Not Available Not Avai lable Valium 10 mg tablet Take 1 tablet po 90 mins before procedure PRN Anxiety, take the second tablet po 30 mins before procedure PRN continued Anxiety. 2013 active Not Available Not Available Not Avai lable glucosamine-c hondroitn sulf.Na bid active Not Available Not Available Not Available Vicodin 5 mg-300 mg tablet Take 1 tablet every 4 hours by oral route as needed for pain. 2013 active Not Available Not Available Not Avai lable Multi Vitamin bid active Not Available Not Available Not Available Vitals Date Recorded Body weight Heart rate Body mass index (BMI) Body height Systolic And Diastolic Provider Name and Address Organization Details Last Updated DateTime 05/30/2014 21990.70 891 g 72 /min 21.1 kg/m2 175.26 cm 125/84 mm[Hg] Alma Panda [facility], [employer] 05/30/2014 11:54:42 Date Recorded Body height Body weight Body mass index (BMI) Oxygen saturation Oxygen saturation in Arterial blood by Pulse oximetry Systolic And Diastolic Provider Name and Address Organization Details Last Updated DateTime 4 177.8 cm 90628.8 9365 g 20.8 kg/m2 97 % 97 % 127/87 mm[Hg] Miguel Ángel Whitten [facility] 4 15:56:16 Date Recorded Body weight Heart rate Body mass index (BMI) Body height Systolic And Diastolic Provider Name and Address Organization Details Last Updated DateTime 11/14/2013 92161.70 891 g 70 /min 20.5 kg/m2 177.8 cm 120/79 mm[Hg] Alma Panda [facility], [employer] 11/14/2013 09:40:18 Date Recorded Oxygen saturation Oxygen saturation in Arterial blood by Pulse oximetry Heart rate Systolic And Diastolic Provider Name and Address Organization Details Last Updated DateTime 02/07/2014 96 % 96 % 70 /min 128/85 mm[Hg] Miguel Ángel Whitten [facility] 4 10:42:19 Social History Question Answer Notes LastModified by [employer] Details LastModified Time Tobacco Smoking Status Never Smoker Miguel Ángel Whitten [facility] 08/07/2013 16:43:05 Education Post Graduate [employer] Information not available 08/07/2013 Marital Status [employer] Informatio n not available 08/07/2013 Sex: Unknown Functional Status Question Answer Note LastModified by [employer] Details LastModified Time What is your level of alcohol consumption? 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 Family History Relationship Description Onset Age of this Age Resolved Age Notes LastModified by Organization Details LastModified Time Father Hypertensive disorder [email or web address] Not available 02/07 10:42:19 Father Arthritis [email or web address] Not availa ble 02/07/2014 10:42:19 Father Hypercholest erolemia [email or web address] Not available 02/07 10:42:19 Mother Arthritis [email or web address] Not availa ble 02/07/2014 10:42:19 Medical History Condition Response Cancer Y Gynecological HistoryNo gynecological history recorded. Obstetrics History GPAL:G 0 P 0 0 0 0 Past Encounters Encounter ID Performer Location Encounter Start Date Encounter Closed Date Diagnosis/Indication Diagnosis SNOMED-CT Code Diagnosis ICD10 Code Diagnosis Note [id number] Nicolasa Gray MD [facility] [address] [place] [id number] 08/07/2013 15:30:46 08/07/2013 17:32:19 Knee pain 06510030 [id number] Nicolasa Gray MD [facility] [address] [place] [id number] 11/14/2013 09:23:30 11/14/2013 12:02:41 Knee pain 47110713 Osteoarthr itis of knee 851217046 Derangemen t of meniscus 107074699 [id number] Nicolasa Gray MD [facility] [address] [place] [id number] 02/07/2014 10:06:30 02/07/2014 12:02:59 Knee pain 99722060 Osteoarthr itis of knee 948461287 Derangemen t of meniscus 224008923 Pain of hip region 03455206 Osteoarthritis of hip 166688222 [id number] Nicolasa Gray MD [facility] [address] [place] [address] 05/30/2014 11:38:51 05/30/2014 13:29:13 Osteoarthritis of knee 719707331 Knee pain 20359233 Derangemen t of meniscus 807452526 Health Concerns Section Related Observation LastModified by Organization Detai ls LastModified Time None Recorded Concern Status LastModified by Organization Details LastModified Time None Recorded Advance Directives Directive None Recorded Payers Insurance Date Sequence Insurance Name Policy Number Policy Sheppard Covered Member ID Sheppard Member ID Guarantor Name 07/08/2014 2 [employer] F (MEDICARE SUPPLEMENT) [employer] Dora Pereira Federico [id number] Dora Caballero 07/09/2014 1 [place] Dora Pereira Federico [id number] Dora Caballero Notes Date Note Type Note Provider Name and Address Organization Details Recorded Time 08/07/2013 text/html She has had ster oid injections over the past few years about 2 years apart which helped degreased her pain. The last one in 09/2012 did not help. She has done a series of Visco supplementation which helped some with pain. Not Available [facility] 08/17/[facility] 11:49:17 OBGyn Episode No OBEpisode recorded.
[2024-09-12 11:38] VITALS: BP 132/78; PULSE 69; RESP 16; TEMP 36.2; O2SAT 100
--- NOTE | 2024-09-12 11:46 | ED.GENADULT ---
HPI - General Adult General Chief complaint: Extremity Injury, Lower Stated complaint: RT Foot Pain History of Present Illness HPI narrative: Dora Caballero is this 78-year-old female who presents complaining of having right foot pain that started 4 days ago. She denies knowing of any kind of injury did drop on anything on her foot denies falling. She states that pain is worse when she bears weight and the pain is more across the top of her foot and on the bottom. No ankle pain no pain to her toes. Related Data Home Medications ?Medication ?Instructions ?Recorded ?Confirmed ?Last Taken ?Type celecoxib 200 mg capsule mg 08/14/23 Unknown History latanoprost 0.005 % eye drops drp 09/12/24 Unknown History Allergies Allergy/AdvReac Type Severity Reaction Status Date / Time codeine AdvReac Nausea Verified 09/12/24 11:53 Review of Systems Review of Systems: All systems reviewed & are unremarkable except as noted in HPI and below Exam Narrative: GENERAL: Well-appearing, well-nourished, and in no acute distress. HEAD: Normocephalic, atraumatic. EYES: PERRLA and EOMI. ENT: Nares clear, no rhinorrhea or epistaxis. Mucous membranes moist. Oropharynx without tonsillar hypertrophy exudate or other lesions. NECK: Supple. No adenopathy or masses. No carotid bruits or JVD CHEST: Clear to auscultation. No respiratory distress. No wheezes rales or rhonchi HEART: Regular rate and rhythm. No murmur heard. Normal peripheral pulses. EXTREMITIES: Normal range of motion. No pitting edema, TOp of right foot mild swelling, strong pedal pulses, ROM intact pain with palpation and bearing weight SKIN: Warm, dry, no rash. NEURO: No focal deficits. Alert and oriented x3. PSYCH: Normal mood and affect. Course Course Level of Care: Express Care Visit Vital Signs Vital signs: Vital Signs Temperature 36.2 C L 09/12/24 11:38 Pulse Rate 69 09/12/24 11:38 Respiratory Rate 16 09/12/24 11:38 Blood Pressure 132/78 09/12/24 11:38 Pulse Oximetry 100 09/12/24 11:38 Oxygen Delivery Room Air 09/12/24 11:38 Temperature 36.2 C L 09/12/24 11:38 Pulse Rate 69 09/12/24 11:38 Respiratory Rate 16 09/12/24 11:38 Blood Pressure 132/78 09/12/24 11:38 Pulse Oximetry 100 09/12/24 11:38 Oxygen Delivery Room Air 09/12/24 11:38 Medical Decision Making MDM Narrative Medical decision making narrative: 78-year-old with complaints of acute right foot pain to the top of her right foot this started about 4 days ago. She denies any injury or trauma. On exam she is noted to have mild swelling across the top of her foot no real ecchymosis or erythema strong pedal pulses pain with palpation and states pain with bearing weight across the top of her foot plan to check an x-ray XR: Trace dorsal soft tissue swelling, without acute fracture. patient will be discharged home with [facility] podiatry referral PCP follow-up return precautions discussed Medical Records Medical records reviewed: Yes I reviewed the external patient's medical records. Vital Signs Vital Signs: Vital Signs Temperature 36.2 C L 09/12/24 11:38 Pulse Rate 69 09/12/24 11:38 Respiratory Rate 16 09/12/24 11:38 Blood Pressure 132/78 09/12/24 11:38 Pulse Oximetry 100 09/12/24 11:38 Oxygen Delivery Room Air 09/12/24 11:38 Temperature 36.2 C L 09/12/24 11:38 Pulse Rate 69 09/12/24 11:38 Respiratory Rate 16 09/12/24 11:38 Blood Pressure 132/78 09/12/24 11:38 Pulse Oximetry 100 09/12/24 11:38 Oxygen Delivery Room Air 09/12/24 11:38 vitals reviewed by la Imaging Data Radiologist's impression: Impressions Foot X-Ray 09/12/24 12:10 IMPRESSION: Trace dorsal soft tissue swelling, without acute fracture. Discharge Plan Discharge Clinical Impression: Metatarsalgia Qualifiers: Laterality: right Qualified Code(s): M77.41 - Metatarsalgia, right foot Patient Disposition: Home Condition: Stable Instructions: Antibiotic Form, P.R.I.C.E. Treatment (ED) Additional Instructions: Continue to wear the Rachid wrap, Elevate and Ice area of pain You may take Tylenol / Motrin for pain Follow up with your PCP in 1 week to ensure this is improving If you have continued pain then follow up with Podiatry If you develop worsening symptoms, increased swelling, increased pain then proceed to the ER. Patient Language: Panamanian Prescriptions: No Action celecoxib 200 mg capsule latanoprost 0.005 % drops Follow-up/Referrals: Violetta,Baudilio [Other] - 1 Week Robert Wagoner Jr., DPM [Physician] - 1 Week Time of Disposition: 12:17
== END 2024-09-12 12:23 | disposition home or self-care (01) ==
PROVIDERS: Emergency Provider Nurse Practitioner Family
DX: M77.41 Metatarsalgia, right foot (principal)
CPT/HCPCS: 73630; 99213; G0463